=== PATIENT | female | born 1995 | race Caucasian/White ===

== ENCOUNTER 2016-08-05 12:09 | Emergency (ER) | payer OTHER ==
[2016-08-05] MEDS ORDERED: IBUPROFEN 600 MG TABLET PO ONE (12:51)
--- NOTE | 2016-08-05 12:51 | ER Document Report ---
ED Medical Screen (RME) - General Stated Complaint: EAR PAIN Time seen by provider: 12:50 Mode of Arrival: Ambulatory Information source: Patient Notes: 20-year-old female presents to ED for cough and stuffy nose bilateral ear pain since Tuesday. Denies fevers. Last menstrual period 08/01/2016. I have greeted and performed a rapid initial assessment of this patient. A comprehensive ED assessment and evaluation of the patient, analysis of test results and completion of medical decision making process will be conducted by an additional ED providers. TRAVEL OUTSIDE OF THE [place] IN LAST 30 DAYS: No - Related Data Allergies/Adverse Reactions: codeine [Codeine] Allergy (Intermediate, Verified 08/07/14 11:48) rash Past Medical History - Past Medical History Cardiac Medical History: Denies: Hx Heart Attack, Hx Hypertension Pulmonary Medical History: Denies: Hx Asthma Neurological Medical History: Reports: Hx Seizures - FEBRILE TODDLER. 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 Denies: Hx Hysterectomy, Hx Mastectomy, Hx Open Heart Surgery, Hx Pacemaker - Immunizations Immunizations up to date: Yes Hx Diphtheria, Pertussis, Tetanus Vaccination: Yes Physical Exam - Vital signs Vitals: Temp Pulse Resp BP Pulse Ox 97.9 F 95 H 16 128/61 H 99 08/05/16 12:22 08/05/16 12:22 08/05/16 12:22 08/05/16 12:22 08/05/16 12:22 Course - Vital Signs Vital signs: Temp Pulse Resp BP Pulse Ox 97.9 F 95 H 16 128/61 H 99 08/05/16 12:22 08/05/16 12:22 08/05/16 12:22 08/05/16 12:22 08/05/16 12:22
--- NOTE | 2016-08-05 14:06 | ER Document Report ---
HPI - HPI Onset: Other Onset/Duration: Persistent Quality of pain: Achy Pain Level: 3 Context: Patient presents with a six-day history of cough, congestion and bilateral ear pain. Patient reports chest pain with deep inspiration. No fever. Associated Symptoms: Chest pain - With deep inspiration and coughing, Nonproductive cough, Earache, Hurts to breath, Rhinnorhea. denies: Fever, Nausea, Vomiting Exacerbated by: Coughing, Deep breathing Relieved by: Remaining still Similar symptoms previously: No Recently seen / treated by doctor: No - ROS ROS below otherwise negative: Yes Systems Reviewed and Negative: Yes All other systems reviewed and negative - CONSTITUTIONAL Constitutional: DENIES: Fever, Chills - EENT EENT: REPORTS: Ear Pain, Congestion - CARDIOVASCULAR Cardiovascular: REPORTS: Chest pain - With deep inspiration - RESPIRATORY Respiratory: REPORTS: Coughing. DENIES: Trouble Breathing - GASTROINTESTINAL Gastrointestinal: DENIES: Abdominal Pain, Nausea, Patient vomiting, Diarrhea - REPRODUCTIVE Reproductive: DENIES: : - MUSCULOSKELETAL Musculoskeletal: DENIES: Extremity pain, Back Pain, Neck Pain - DERM Skin Color: Normal Skin Problems: None Past Medical History - General Information source: Patient - Social History Smoking Status: Current Every Day Smoker Chew tobacco use (# tins/day): No Frequency of alcohol use: None Drug Abuse: None Occupation: student Lives with: Family Family History: Reviewed & Not Pertinent, CAD, CVA, DM, Hyperlipidemia, Hypertension, Malignancy Patient has suicidal ideation: No Patient has homicidal ideation: No - Past Medical History Cardiac Medical History: Denies: Hx Heart Attack, Hx Hypertension Pulmonary Medical History: Denies: Hx Asthma Neurological Medical History: Reports: Hx Seizures - FEBRILE TODDLER. 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 Denies: Hx Peritoneal Dialysis GI Medical History: Denies: Hx Hepatitis, Hx Hiatal Hernia, Hx Ulcer Musculoskeltal Medical History: Reports Hx Fibromyalgia, Reports Hx Musculoskeletal Trauma Skin Medical History: Reports Hx Cellulitis Psychiatric Medical History: Reports: Hx Attention Deficit Hyperactivity Disorder, Hx Bipolar Disorder, Hx Depression Infectious Medical History: Denies: Hx Hepatitis Past Surgical History: Reports: Hx Adenoidectomy, Hx Oral Surgery, Hx Tonsillectomy. Denies: Hx Hysterectomy, Hx Mastectomy, Hx Open Heart Surgery, Hx Pacemaker - Immunizations Immunizations up to date: Yes Hx Diphtheria, Pertussis, Tetanus Vaccination: Yes Hx Pneumococcal Vaccination: 05/09/00 Vertical Provider Document - CONSTITUTIONAL Agree With Documented VS: Yes Exam Limitations: No Limitations General Appearance: WD/WN, No Apparent Distress - INFECTION CONTROL TRAVEL OUTSIDE OF THE [place] IN LAST 30 DAYS: No - HEENT HEENT: Atraumatic, Normal ENT Exam, Normocephalic Notes: Normal external auditory canals bilaterally, no mastoid tenderness or swelling. - NECK Neck: Normal Inspection, Supple. negative: Lymphadenopathy-Left, Lymphadenopathy-Right - RESPIRATORY Respiratory: Breath Sounds Normal, No Respiratory Distress. negative: Chest Non -Tender - Anterior chest wall tenderness with palpation, Rales, Rhonchi, Wheezing O2 Sat by Pulse Oximetry: 99 - CARDIOVASCULAR Cardiovascular: Regular Rate, Regular Rhythm, No Murmur - GI/ABDOMEN Gastrointestinal: Abdomen Soft, Abdomen Non-Tender, No Organomegaly - BACK Back: Normal Inspection. negative: CVA Tenderness-Right, CVA Tenderness-Left - MUSCULOSKELETAL/EXTREMETIES Musculoskeletal/Extremeties: MELONY DUNCAN - NEURO Level of Consciousness: Awake, Alert, Appropriate Motor/Sensory: No Motor Deficit, No Sensory Deficit - DERM Integumentary: Warm, Dry, No Rash Course - Vital Signs Vital signs: Temp Pulse Resp BP Pulse Ox 97.9 F 95 H 16 128/61 H 99 08/05/16 12:22 08/05/16 12:22 08/05/16 12:22 08/05/16 12:22 08/05/16 12:22 - Laboratory Laboratory results interpreted by me: 08/05/16 15:29 Labs- Last Values Group A Strep Rapid NEGATIVE (NEGATIVE) 08/05/16 14:00 08/05/16 18:29 - Diagnostic Test Radiology reviewed: Reports reviewed Discharge - Discharge Clinical Impression: Upper respiratory infection Qualifiers: URI type: unspecified URI Qualified Code(s): J06.9 - Acute upper respiratory infection, unspecified Otalgia Qualifiers: Laterality: bilateral Qualified Code(s): H92.03 - Otalgia, bilateral Condition: Stable Disposition: HOME, SELF-CARE Instructions: Upper Respiratory Illness ([facility]), Acetaminophen Additional Instructions: Return immediately for any new or worsening symptoms Followup with your primary care provider, call tomorrow to make a followup appointment Throat culture is pending, we'll call if you need any different treatment Prescriptions: Benzonatate [Tessalon Perle 100 mg Capsule] 100 mg PO Q8HP PRN #15 cap PRN Reason: Naproxen [Naprosyn 250 Nmg Tablet] 1 tab PO BID #14 tablet Forms: Return to School Referrals: ROBERT CARL MD [Primary Care Provider] - Follow up tomorrow
[2016-08-05 16:15] VITALS: BP 166/66
== END 2016-08-05 15:39 | disposition home or self-care (01) ==
LOC: ER 12:09
DX: J06.9 Acute upper respiratory infection, unspecified (principal); H92.03 Otalgia, bilateral; R05 Cough; R07.1 Chest pain on breathing; J34.89 Other specified disorders of nose and nasal sinuses; F17.200 Nicotine dependence, unspecified, uncomplicated
CPT/HCPCS: 71020; 87070; 87880; 99283

== ENCOUNTER 2016-08-11 07:46 | Emergency (ER) | payer OTHER ==
[2016-08-11] MEDS ORDERED: ONDANSETRON HCL INJ/PF 4 MG/2 ML SDV IV ONE (09:07)
[2016-08-11] MEDS ORDERED: KETOROLAC TROMETHAMINE INJ/PF 30 MG/1 ML SDV IV ONE (09:07)
[2016-08-11 09:11] LABS: ABSOLUTE EOSINOPHILS # (AUTO) 0.2 10^3/uL (0.0-0.6); ABSOLUTE LYMPHOCYTES (AUTO) 2.5 10^3/uL (0.5-4.7); ABSOLUTE MONOCYTES (AUTO) 0.5 10^3/uL (0.1-1.4); ABSOLUTE NEUT (AUTO) 3.6 10^3/uL (1.7-8.2); BASOPHILS % (AUTO) 0.6 % (0-2); EOSINOPHILS % (AUTO) 3.4 % (0-6); HEMATOCRIT 41.2 % (36.0-47.0); HEMOGLOBIN 14.4 g/dL (12.0-15.5); LYMPHOCYTES % (AUTO) 36.6 % (13-45); MEAN CORPUSCULAR HEMOGLOBIN 31.1 pg (27.0-33.4); MEAN CORPUSCULAR HGB CONC 34.9 g/dL (32.0-36.0); MEAN CORPUSCULAR VOLUME 89 fl (80-97); MONOCYTES % (AUTO) 7.7 % (3-13); RED BLOOD COUNT 4.62 10^6/uL (3.72-5.28); RED CELL DISTRIBUTION WIDTH 13.1 % (11.5-14.0); SEGMENTED NEUTROPHILS % (AUTO) 51.7 % (42-78); WHITE BLOOD COUNT 6.9 10^3/uL (4.0-10.5)
[2016-08-11 09:14] LABS: APPEARANCE,URINE SLIGHTLY-CLOUDY; BILIRUBIN,URINE NEGATIVE (NEGATIVE); GLUCOSE, URINE NEGATIVE (NEGATIVE); KETONES,URINE NEGATIVE (NEGATIVE); LEUKOCYTE ESTERASE,URINE NEGATIVE (NEGATIVE); NITRITE,URINE NEGATIVE (NEGATIVE); PROTEIN,URINE NEGATIVE (NEGATIVE); URINE SPECIFIC GRAVITY 1.028; UROBILINOGEN,URINE NEGATIVE mg/dL (<2.0)
--- NOTE | 2016-08-11 09:15 | ER Document Report ---
ED GI/ - General Chief Complaint: Abdominal Pain Stated Complaint: ABDOMINAL PAIN Mode of Arrival: Ambulatory Information source: Patient TRAVEL OUTSIDE OF THE [place] IN LAST 30 DAYS: No - HPI Patient complains to provider of: Flank pain Timing/Duration: Gradual Quality of pain: Dull Severity at maximum: Moderate Severity in ED: Moderate Associated symptoms: Nausea. denies: Blood in emesis, Blood in stool, Chest pain, Chills, Diarrhea, Dysuria, Fever, Hematuria, Hurts to breath, Inguinal mass, Lightheaded, Loss of appetite, Painful intercourse, Shortness of breath, Sweaty, Syncope, Vaginal discharge, Vomiting Exacerbated by: Denies Relieved by: Denies Notes: 08/11/16 09:17 Patient arrives with complaints of left flank and abdominal pain. She states that yesterday she developed left flank pain and thought she was having difficulty urinating. She woke up this morning the pain has moved into the left mid and lower abdomen. She was able to urinate this morning without any difficulty. She denies any dysuria or hematuria. She denies any history of kidney stones. She denies any prior abdominal surgeries. She reports nausea, denies any vomiting or diarrhea. No blood in her stool. She denies any chest pain or shortness of breath. No rash. No injury. No vaginal bleeding or discharge. Reviewing her records patient has been noted to be evaluated several times for abdominal pain in the past. - Related Data Allergies/Adverse Reactions: codeine [Codeine] Allergy (Intermediate, Verified 08/11/16 07:50) rash Past Medical History - Social History Smoking Status: Unknown if Ever Smoked Family History: Reviewed & Not Pertinent, CAD, CVA, DM, Hyperlipidemia, Hypertension, Malignancy Patient has suicidal ideation: No Patient has homicidal ideation: No - Past Medical History Cardiac Medical History: Denies: Hx Heart Attack, Hx Hypertension Pulmonary Medical History: Denies: Hx Asthma Neurological Medical History: Reports: Hx Seizures - FEBRILE TODDLER. 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 Denies: Hx Peritoneal Dialysis GI Medical History: Denies: Hx Hepatitis, Hx Hiatal Hernia, Hx Ulcer Musculoskeltal Medical History: Reports Hx Fibromyalgia, Reports Hx Musculoskeletal Trauma Skin Medical History: Reports Hx Cellulitis Psychiatric Medical History: Reports: Hx Attention Deficit Hyperactivity Disorder, Hx Bipolar Disorder, Hx Depression Infectious Medical History: Denies: Hx Hepatitis Past Surgical History: Reports: Hx Adenoidectomy, Hx Oral Surgery, Hx Tonsillectomy. Denies: Hx Hysterectomy, Hx Mastectomy, Hx Open Heart Surgery, Hx Pacemaker - Immunizations Immunizations up to date: Yes Hx Diphtheria, Pertussis, Tetanus Vaccination: Yes Hx Pneumococcal Vaccination: 05/09/00 Review of Systems - Review of Systems -: Yes All other systems reviewed and negative Physical Exam - Vital signs Vitals: Temp Pulse Resp BP Pulse Ox 97.6 F 93 H 14 122/45 L 99 08/11/16 07:52 08/11/16 07:52 08/11/16 07:52 08/11/16 07:52 08/11/16 07:52 - General General appearance: Appears well, Alert In distress: None Notes: Patient noted to be texting on phone without difficulty, she is in no distress at all. - HEENT Head: Normocephalic, Atraumatic Eyes: Normal Conjunctiva: Normal Extraocular movements intact: Yes Pupils: PERRL Ears: Normal External canal: Normal Mouth/Lips: Normal Mucous membranes: Normal Pharynx: Normal - Respiratory Respiratory status: No respiratory distress Breath sounds: Normal - Cardiovascular Rhythm: Regular Heart sounds: Normal auscultation Murmur: No - Abdominal Inspection: Normal Tenderness: Tender - Right mid low abdomen. No guarding or rebound. Organomegaly: No organomegaly - Back Back: Normal, Nontender, CVA tenderness - Minimal to the left - Extremities General upper extremity: Normal inspection, Nontender, Normal color, Normal ROM , Normal temperature General lower extremity: Normal inspection, Nontender, Normal color, Normal ROM , Normal temperature, Normal weight bearing. No: Nicholas's sign - Neurological Neuro grossly intact: Yes Cognition: Normal Orientation: AAOx4 Flaco Coma Scale Eye Opening: Spontaneous Flaco Coma Scale Verbal: Oriented [place] Coma Scale Motor: Obeys Commands Flaco Coma Scale Total: 15 Speech: Normal Motor strength normal: LUE, RUE, LLE, RLE Sensory: Normal - Psychological Associated symptoms: Normal affect, Normal mood - Skin Skin Temperature: Warm Skin Moisture: Dry Skin Color: Normal Course - Re-evaluation Re-evalutation: 08/11/16 11:12 Patient is nontoxic and stable vitals. The patient has a benign exam at this time. She'll be resting comfortably at all times texting without any difficulty. The patient's workup is unremarkable, normal urine, normal labs, normal CT abdomen and pelvis. Patient will be discharged home with prescription for Voltaren and Zofran. Follow up if not better in 2-3 days, sooner for increased pain, fever, persistent vomiting, or any further concerns. The patient is noted to have elevated blood pressure during today's emergency department visit. The patient was informed of this finding. The patient was instructed that this may be related to pre-hypertension and requires further evaluation with a primary care provider. The patient has no hypertensive symptoms at this time. The patient's evaluation of abdominal pain showed no obvious reason for pain during this emergency department visit today. I explained that there is the possibility that there could be a serious reason for the abdominal pain that was not discovered with today's workup. I stressed the importance of close observation as well as close follow-up for re-evaluation of the abdominal pain. The patient and/or family verbalized understanding of these instructions. He will be instructed to return immediately to the emergency department for increased abdominal pain, persistent vomiting, blood in vomit or stool, or any other change in symptoms or concerns. The patient's emergency department workup and current diagnosis were explained to the patient and or family. Follow-up instructions were provided. Medications if prescribed were discussed. Instructions for when to return to the emergency department including specific worrisome symptoms were discussed with the patient and/or family. - Vital Signs Vital signs: Temp Pulse Resp BP Pulse Ox 97.6 F 93 H 14 122/45 L 99 08/11/16 07:52 08/11/16 07:52 08/11/16 07:52 08/11/16 07:52 08/11/16 07:52 - Laboratory Result Diagrams: 08/11/16 09:00 08/11/16 09:00 - Diagnostic Test Radiology reviewed: Image reviewed, Reports reviewed - Negative CT and pelvis Discharge - Discharge Clinical Impression: Left flank pain Abdominal pain Qualifiers: Abdominal location: left upper quadrant Qualified Code(s): R10.12 - Left upper quadrant pain Condition: Stable Disposition: HOME, SELF-CARE Instructions: Abdominal Pain ([facility]), Flank Pain ([facility]) Additional Instructions: Take medications as prescribed. Follow-up with your doctor in 1-2 days for recheck. Follow-up sooner for increased pain, fever, persistent vomiting, or any further concerns. Your blood pressure was elevated during today's visit. Have this rechecked with your doctor. Prescriptions: Diclofenac Sodium [Voltaren] 75 mg PO BID #20 tablet. Ondansetron HCl [Zofran 4 mg Tablet] 1 tab PO Q6H PRN #10 tablet PRN Reason: Forms: Elevated Blood Pressure
[2016-08-11 09:30] LABS: ALANINE AMINOTRANSFERASE 28 U/L (5-35); ALBUMIN 4.1 g/dL (3.7-5.6); ALKALINE PHOSPHATASE 80 U/L (50-135); ANION GAP 12 (5-19); ASPARTATE AMINO TRANSFERASE 17 U/L (5-30); BILIRUBIN,DIRECT 0.2 mg/dL (0.0-0.4); BILIRUBIN,TOTAL 0.3 mg/dL (0.2-1.3); BLOOD UREA NITROGEN 13 mg/dL (7-20); CALCIUM 9.5 mg/dL (8.4-10.2); CARBON DIOXIDE 25 mmol/L (22-30); CHLORIDE 106 mmol/L (98-107); CREATININE RESULT 0.62 mg/dL (0.52-1.25); GLUCOSE 89 mg/dL (75-110); LIPASE 91.8 U/L (23-300); POTASSIUM 4.9 mmol/L (3.6-5.0); SODIUM 143.4 mmol/L (137-145); TOTAL PROTEIN 6.6 g/dL (6.3-8.2)
[2016-08-11 12:06] VITALS: BP 110/42
== END 2016-08-11 11:42 | disposition home or self-care (01) ==
LOC: ER 07:46
DX: R10.12 Left upper quadrant pain (principal); R10.9 Unspecified abdominal pain; R11.0 Nausea; Z88.6 Allergy status to analgesic agent
CPT/HCPCS: 99284; 36415; 83690; 84703; 85025; 80053; 81001; 74176; J1885; J2405

== ENCOUNTER 2016-08-31 08:07 | Emergency (ER) | payer OTHER ==
--- NOTE | 2016-08-31 10:11 | ER Document Report ---
HPI - HPI Patient complains to provider of: right hand and wrist pain Onset: Other - Tuesday morning Onset/Duration: Sudden Quality of pain: Achy Severity: Moderate Pain Level: 3 Context: Patient states she fell off her porch early Tuesday morning injuring her right hand and right wrist. Associated Symptoms: None Exacerbated by: Movement Relieved by: Remaining still Similar symptoms previously: No Recently seen / treated by doctor: No - ROS ROS below otherwise negative: Yes Systems Reviewed and Negative: Yes All other systems reviewed and negative - CONSTITUTIONAL Constitutional: DENIES: Fever - EENT EENT: DENIES: Congestion - NEURO Neurology: DENIES: Headache - CARDIOVASCULAR Cardiovascular: DENIES: Chest pain - RESPIRATORY Respiratory: DENIES: Trouble Breathing - GASTROINTESTINAL Gastrointestinal: DENIES: Abdominal Pain - URINARY Urinary: DENIES: Dysuria - REPRODUCTIVE Reproductive: DENIES: : - MUSCULOSKELETAL Musculoskeletal: REPORTS: Extremity pain - Right hand and right wrist - DERM Skin Color: Normal Skin Problems: None Past Medical History - General Information source: Patient - Social History Smoking Status: Current Every Day Smoker Chew tobacco use (# tins/day): No Frequency of alcohol use: None Drug Abuse: None Family History: Reviewed & Not Pertinent, CAD, CVA, DM, Hyperlipidemia, Hypertension, Malignancy Patient has suicidal ideation: No Patient has homicidal ideation: No Neurological Medical History: Reports: Hx Seizures - FEBRILE TODDLER Renal/ Medical History: Reports: Hx Ovarian Cysts. Denies: Hx Peritoneal Dialysis GI Medical History: Denies: Hx Ulcer Musculoskeltal Medical History: Reports Hx Fibromyalgia, Reports Hx Musculoskeletal Trauma Skin Medical History: Reports Hx Cellulitis Psychiatric Medical History: Reports: Hx Attention Deficit Hyperactivity Disorder, Hx Bipolar Disorder, Hx Depression Past Surgical History: Reports: Hx Adenoidectomy, Hx Oral Surgery, Hx Tonsillectomy - Immunizations Immunizations up to date: Yes Hx Diphtheria, Pertussis, Tetanus Vaccination: Yes Hx Pneumococcal Vaccination: 05/09/00 Vertical Provider Document - CONSTITUTIONAL Agree With Documented VS: Yes Exam Limitations: No Limitations General Appearance: WD/WN, No Apparent Distress - INFECTION CONTROL TRAVEL OUTSIDE OF THE [place] IN LAST 30 DAYS: No - HEENT HEENT: Atraumatic, Normocephalic - RESPIRATORY Respiratory: Breath Sounds Normal, No Respiratory Distress O2 Sat by Pulse Oximetry: 100 - CARDIOVASCULAR Cardiovascular: Regular Rate, Regular Rhythm - GI/ABDOMEN Gastrointestinal: Abdomen Soft - MUSCULOSKELETAL/EXTREMETIES Notes: No edema noted to right hand or wrist. Tender over right index finger and medial right wrist. No bruising or abrasions noted. - NEURO Level of Consciousness: Awake, Alert, Appropriate - DERM Integumentary: Warm, Dry, No Rash Course - Re-evaluation Re-evalutation: 08/31/16 10:40 X-rays negative and discussed with patient. - Vital Signs Vital signs: Temp Pulse Resp BP Pulse Ox 97.8 F 94 H 16 130/78 H 100 08/31/16 08:12 08/31/16 08:12 08/31/16 08:12 08/31/16 08:12 08/31/16 08:12 Discharge - Discharge Clinical Impression: Right wrist sprain Qualifiers: Encounter type: initial encounter Qualified Code(s): S63.501A - Unspecified sprain of right wrist, initial encounter Condition: Good Disposition: HOME, SELF-CARE Additional Instructions: Ice and elevate Wear splint as directed Ibuprofen for pain Follow-up with your doctor if not better in 1 week Turn as needed Forms: Return to Work
[2016-08-31 11:02] VITALS: BP 115/63
== END 2016-08-31 11:02 | disposition home or self-care (01) ==
LOC: ER 08:07
DX: S63.501A Unspecified sprain of right wrist, initial encounter (principal); M79.641 Pain in right hand; M25.531 Pain in right wrist; W17.89XA Other fall from one level to another, initial encounter; F17.200 Nicotine dependence, unspecified, uncomplicated
CPT/HCPCS: 99283; 73130; L3984

== ENCOUNTER 2016-09-23 08:32 | Emergency (ER) | payer SELFPAY ==
[2016-09-23 08:41] VITALS: BP 114/46
--- NOTE | 2016-09-23 08:50 | ER Document Report ---
HPI - HPI Patient complains to provider of: EAR PAIN, COUGH Onset: Last week Onset/Duration: Persistent Pain Level: 4 Context: Patient presents to the Emergency department for complaints of left ear pain and cough for the past week. Patient reports that her has woke her up several times during the night because she was not breathing correctly. She reports fever of 100.0 yesterday. Denies Vomiting and diarrhea. Denies trauma to the ear. Associated Symptoms: None Exacerbated by: Denies Relieved by: Denies Similar symptoms previously: Yes Recently seen / treated by doctor: No - REPRODUCTIVE Reproductive: DENIES: : - DERM Skin Color: Normal <NATHANIEL GEE - Last Filed: 09/23/16 18:18> Past Medical History - General Information source: Patient Last Menstrual Period: 08/01/16 - Social History Smoking Status: Current Every Day Smoker Cigarette use (# per day): Yes - 1/2 ppd Frequency of alcohol use: None Drug Abuse: None Occupation: student Lives with: Family, Spouse/Significant other Family History: Reviewed & Not Pertinent, CAD, CVA, DM, Hyperlipidemia, Hypertension, Malignancy Patient has suicidal ideation: No Patient has homicidal ideation: No - Past Medical History Cardiac Medical History: Denies: Hx Heart Attack, Hx Hypertension Pulmonary Medical History: Denies: Hx Asthma Neurological Medical History: Reports: Hx Seizures - FEBRILE TODDLER Endocrine Medical History: Denies: Hx Diabetes Mellitus Type 2 - hypogylcemia Renal/ Medical History: Reports: Hx Ovarian Cysts. Denies: Hx Peritoneal Dialysis GI Medical History: Denies: Hx Hiatal Hernia, Hx Ulcer Musculoskeltal Medical History: Reports Hx Fibromyalgia, Reports Hx Musculoskeletal Trauma Skin Medical History: Reports Hx Cellulitis Psychiatric Medical History: Reports: Hx Attention Deficit Hyperactivity Disorder, Hx Bipolar Disorder, Hx Depression Past Surgical History: Reports: Hx Adenoidectomy, Hx Oral Surgery, Hx Tonsillectomy. Denies: Hx Hysterectomy, Hx Mastectomy, Hx Open Heart Surgery - Immunizations Immunizations up to date: Yes Hx Diphtheria, Pertussis, Tetanus Vaccination: Yes Hx Pneumococcal Vaccination: 05/09/00 <NATHANIEL GEE - Last Filed: 09/23/16 18:18> Vertical Provider Document - CONSTITUTIONAL Agree With Documented VS: Yes Exam Limitations: No Limitations General Appearance: WD/WN, No Apparent Distress - INFECTION CONTROL TRAVEL OUTSIDE OF THE [place] IN LAST 30 DAYS: No - HEENT HEENT: Atraumatic, Normal ENT Exam. negative: Conjuctival Injection, Pharyngeal Exudate, Pharyngeal Erythema, Tympanic Membrane Red, Tympanic Membrane Bulging - NECK Neck: Normal Inspection, Supple. negative: Lymphadenopathy-Left, Lymphadenopathy-Right - RESPIRATORY Respiratory: Breath Sounds Normal, No Respiratory Distress - NO COUGHING NOTED DURING ENTIRE ASSESSMENT AND INTERVIEW, Chest Non-Tender O2 Sat by Pulse Oximetry: 99 - CARDIOVASCULAR Cardiovascular: Regular Rate, Regular Rhythm - GI/ABDOMEN Gastrointestinal: Abdomen Soft, Abdomen Non-Tender - BACK Back: Normal Inspection - MUSCULOSKELETAL/EXTREMETIES Musculoskeletal/Extremeties: MELONY DUNCAN - NEURO Level of Consciousness: Awake, Alert, Appropriate Motor/Sensory: No Motor Deficit <NATHANIEL GEE - Last Filed: 09/23/16 18:18> Course - Re-evaluation Re-evalutation: 09/23/16 Patient looks really good nontoxic looking. Patient speaking in clear sentences without shortness of breath. Patient was instructed on the importance of follow-up with the primary care provider for evaluation and recheck. She verbalized understanding to all instructions. - Vital Signs Vital signs: Temp Pulse Resp BP Pulse Ox 98.1 F 86 20 114/46 L 99 09/23/16 08:40 09/23/16 08:40 09/23/16 08:40 09/23/16 08:40 09/23/16 08:40 <NATHANIEL GEE - Last Filed: 09/23/16 18:18> - Vital Signs Vital signs: Temp Pulse Resp BP Pulse Ox 98.1 F 86 20 114/46 L 99 09/23/16 08:40 09/23/16 08:40 09/23/16 08:40 09/23/16 08:40 09/23/16 18:22 <DARIO GAFFNEY - Last Filed: 09/25/16 10:18> Discharge <NATHANIEL GEE - Last Filed: 09/23/16 18:18> <DARIO GAFFNEY - Last Filed: 09/25/16 10:18> - Discharge Clinical Impression: Left ear pain, cough Condition: Stable Disposition: HOME, SELF-CARE Instructions: Acetaminophen, Stop Smoking ([facility]) Additional Instructions: *You have been evaluated for ear pain, cough *Quit smoking *Take antihistamine as indicated *Take tylenol as indicated for ear pain *Follow up with a primary care provider for recheck within one week *Return to ED for worsening condition, changes, needs, trouble breathing, increased fever, concerns Forms: Smoking Cessation Education, Parent Work Note, Return to School
== END 2016-09-23 09:40 | disposition home or self-care (01) ==
LOC: ER 08:32
DX: H92.02 Otalgia, left ear (principal); R05 Cough; F17.210 Nicotine dependence, cigarettes, uncomplicated
CPT/HCPCS: 99282

== ENCOUNTER 2016-09-29 07:49 | Emergency (ER) | payer MEDICAID, OTHER ==
[2016-09-29 08:43] LABS: ABSOLUTE BASOPHILS # (AUTO) 0.1 10^3/uL (0.0-0.2); ABSOLUTE EOSINOPHILS # (AUTO) 0.3 10^3/uL (0.0-0.6); ABSOLUTE LYMPHOCYTES (AUTO) 2.8 10^3/uL (0.5-4.7); ABSOLUTE MONOCYTES (AUTO) 0.7 10^3/uL (0.1-1.4); ABSOLUTE NEUT (AUTO) 6.2 10^3/uL (1.7-8.2); BASOPHILS % (AUTO) 0.7 % (0-2); HEMATOCRIT 45.6 % (36.0-47.0); HEMOGLOBIN 15.7 g/dL (12.0-15.5); HGB HCT DIFFERENCE 1.5; LYMPHOCYTES % (AUTO) 27.9 % (13-45); MEAN CORPUSCULAR HEMOGLOBIN 30.9 pg (27.0-33.4); MEAN CORPUSCULAR HGB CONC 34.3 g/dL (32.0-36.0); MEAN CORPUSCULAR VOLUME 90 fl (80-97); MONOCYTES % (AUTO) 6.9 % (3-13); RED BLOOD COUNT 5.06 10^6/uL (3.72-5.28); RED CELL DISTRIBUTION WIDTH 13.2 % (11.5-14.0); SEGMENTED NEUTROPHILS % (AUTO) 61.5 % (42-78)
[2016-09-29 09:04] LABS: ALANINE AMINOTRANSFERASE 28 U/L (5-35); ALBUMIN 4.5 g/dL (3.7-5.6); ALKALINE PHOSPHATASE 84 U/L (50-135); ANION GAP 9 (5-19); ASPARTATE AMINO TRANSFERASE 19 U/L (5-30); BILIRUBIN,DIRECT 0.3 mg/dL (0.0-0.4); BILIRUBIN,TOTAL 0.5 mg/dL (0.2-1.3); BLOOD UREA NITROGEN 10 mg/dL (7-20); CALCIUM 9.9 mg/dL (8.4-10.2); CARBON DIOXIDE 26 mmol/L (22-30); CHLORIDE 104 mmol/L (98-107); CREATININE RESULT 0.66 mg/dL (0.52-1.25); GLUCOSE 84 mg/dL (75-110); LIPASE 101.3 U/L (23-300); POTASSIUM 4.4 mmol/L (3.6-5.0); SODIUM 138.8 mmol/L (137-145); TOTAL PROTEIN 7.5 g/dL (6.3-8.2)
[2016-09-29 09:12] LABS: APPEARANCE,URINE SLIGHTLY-CLOUDY; BILIRUBIN,URINE NEGATIVE (NEGATIVE); GLUCOSE, URINE NEGATIVE (NEGATIVE); KETONES,URINE NEGATIVE (NEGATIVE); LEUKOCYTE ESTERASE,URINE SMALL (NEGATIVE); NITRITE,URINE NEGATIVE (NEGATIVE); PROTEIN,URINE NEGATIVE (NEGATIVE); URINE SPECIFIC GRAVITY 1.015; UROBILINOGEN,URINE NEGATIVE mg/dL (<2.0)
[2016-09-29] MEDS ORDERED: KETOROLAC TROMETHAMINE INJ/PF 30 MG/1 ML SDV IV ONE (09:19)
--- NOTE | 2016-09-29 09:20 | ER Document Report ---
ED General - General Chief Complaint: Lower Abdominal Pain Stated Complaint: ABDOMINAL PAIN Time Seen by Provider: 09/29/16 08:02 Mode of Arrival: Ambulatory Information source: Patient Notes: 20-year-old female presents with complaints of left lower quadrant abdominal pain. Patient admits she has a history of ovarian cyst denies any vaginal bleeding or discharge. Patient denies any urinary complaints. Patient admits to one episode of vomiting. Pain started yesterday TRAVEL OUTSIDE OF THE [place] IN LAST 30 DAYS: No - HPI Onset: Yesterday Onset/Duration: Sudden Quality of pain: Cramping Severity: Mild Pain Level: 1 Associated symptoms: Nausea, Vomiting Exacerbated by: Denies Relieved by: Denies Similar symptoms previously: Yes Recently seen / treated by doctor: Yes - Related Data Allergies/Adverse Reactions: codeine [Codeine] Allergy (Intermediate, Verified 09/29/16 07:52) rash Past Medical History - Social History Smoking Status: Current Every Day Smoker Cigarette use (# per day): Yes Chew tobacco use (# tins/day): No Smoking Education Provided: No Frequency of alcohol use: None Drug Abuse: None Family History: Reviewed & Not Pertinent, CAD, CVA, DM, Hyperlipidemia, Hypertension, Malignancy Patient has suicidal ideation: No Patient has homicidal ideation: No - Past Medical History Cardiac Medical History: Denies: Hx Heart Attack, Hx Hypertension Pulmonary Medical History: Denies: Hx Asthma Neurological Medical History: Reports: Hx Seizures - FEBRILE TODDLER Endocrine Medical History: Denies: Hx Diabetes Mellitus Type 2 - hypogylcemia Renal/ Medical History: Reports: Hx Ovarian Cysts. Denies: Hx Peritoneal Dialysis GI Medical History: Denies: Hx Hiatal Hernia, Hx Ulcer Musculoskeltal Medical History: Reports Hx Fibromyalgia, Reports Hx Musculoskeletal Trauma Skin Medical History: Reports Hx Cellulitis Psychiatric Medical History: Reports: Hx Attention Deficit Hyperactivity Disorder, Hx Bipolar Disorder, Hx Depression Past Surgical History: Reports: Hx Adenoidectomy, Hx Oral Surgery, Hx Tonsillectomy. Denies: Hx Hysterectomy, Hx Mastectomy, Hx Open Heart Surgery - Immunizations Immunizations up to date: Yes Hx Diphtheria, Pertussis, Tetanus Vaccination: Yes Hx Pneumococcal Vaccination: 05/09/00 Review of Systems - Review of Systems Notes: PHYSICAL EXAMINATION: GENERAL: Well-appearing, well-nourished and in no acute distress. HEAD: Atraumatic, normocephalic. EYES: Pupils equal round and reactive to light, extraocular movements intact, conjunctiva are normal. ENT: Nares patent, oropharynx clear without exudates. Moist mucous membranes. NECK: Normal range of motion, supple without lymphadenopathy LUNGS: Breath sounds clear to auscultation bilaterally and equal. No wheezes rales or rhonchi. HEART: Regular rate and rhythm without murmurs ABDOMEN: Soft, mildly tender in the suprapubic region Female : deferred Musculoskeletal: Normal range of motion, no pitting or edema. No cyanosis. NEUROLOGICAL: Cranial nerves grossly intact. Normal speech, normal gait. Normal sensory, motor exams PSYCH: Normal mood, normal affect. SKIN: Warm, Dry, normal turgor, no rashes or lesions noted. Physical Exam - Vital signs Vitals: Temp Pulse Resp BP Pulse Ox 98.2 F 88 18 124/51 L 99 09/29/16 07:53 09/29/16 07:53 09/29/16 07:53 09/29/16 07:53 09/29/16 07:53 Course - Re-evaluation Re-evalutation: 09/29/16 09:54 Labwork notes no significant abnormality there is no sign of infection. Urinalysis was normal as well. Ultrasound is pending at this time 09/29/16 11:11 us is consistant wit hwith left ovarian cyst, otherwise no life threatening issues noted After performing a Medical Screening Examination, I estimate there is LOW risk for ACUTE APPENDICITIS, BOWEL OBSTRUCTION, ACUTE CHOLECYSTITIS, PERFORATED DIVERTICULITIS, INCARCERATED HERNIA, PANCREATITIS, PELVIC INFLAMMATORY DISEASE, PERFORATED ULCER, ECTOPIC , or TUBO-OVARIAN ABSCESS, thus I consider the discharge disposition reasonable. Also, there is no evidence or peritonitis , sepsis, or toxicity. I have reevaluated this patient multiple times and no significant life threatening changes are noted. The patient and I have discussed the diagnosis and risks, and we agree with discharging home with close follow-up with the understanding that symptoms and presentations can change. We also discussed returning to the Emergency Department immediately if new or worsening symptoms occur. We have discussed the symptoms which are most concerning (e.g., bloody stool, fever, changing or worsening pain, vomiting) that necessitate immediate return. - Vital Signs Vital signs: Temp Pulse Resp BP Pulse Ox 98.2 F 88 18 124/51 L 99 09/29/16 07:53 09/29/16 07:53 09/29/16 07:53 09/29/16 07:53 09/29/16 07:53 - Laboratory Result Diagrams: 09/29/16 08:25 09/29/16 08:25 Laboratory results interpreted by me: 09/29/16 09/29/16 08:25 08:50 Hgb 15.7 H Ur Leukocyte Esterase SMALL H - Diagnostic Test Radiology reviewed: Image reviewed, Reports reviewed - left [id number] cm Discharge - Discharge Clinical Impression: Left ovarian cyst, Pelvic pain Condition: Stable Disposition: HOME, SELF-CARE Instructions: Pelvic Pain ([facility]) Prescriptions: Naproxen 500 mg PO Q8 #30 tablet Forms: Return to School Referrals: ROBERT CARL MD [Primary Care Provider] - Follow up as needed [facility] [Provider Group] - Follow up in 3-5 days
--- NOTE | 2016-09-29 10:46 | RADIOLOGY REPORT (SQ) ---
EXAM DESCRIPTION: U/S NON OB PEL W/DOPPLER COMPLETED DATE/TIME: 09/29/2016 10:27 am REASON FOR STUDY: LLQ pain COMPARISON: 01/26/2016 TECHNIQUE: Dynamic and static grayscale images acquired of the pelvis via transabdominal approach an d recorded on PACS. Additional selected color Doppler and spectral images recorded. LIMITATIONS: None. FINDINGS: UTERUS: Contour normal. No mass. ENDOMETRIAL STRIPE: No focal or generalized thickening. No masses. No intrauterine gestational sac. CERVIX: No nabothian cysts. RIGHT OVARY: No abnormal masses. RIGHT OVARY DOPPLER: Normal arterial vascular flow without evidence for torsion. LEFT OVARY: No abnormal masses. There is a 36 x 32 x 25 mm cyst. LEFT OVARY DOPPLER: Normal arterial vascular flow without evidence for torsion. FREE FLUID: None noted. OTHER: No other significant finding. MEASUREMENTS: UTERUS: 79 x 56 x 40 mm ENDOMETRIAL STRIPE: 9 mm RIGHT OVARY: 34 x 22 x 29 mm LEFT OVARY: 39 x 32 x 34 mm IMPRESSION: Left ovarian cyst as described. TECHNICAL DOCUMENTATION: JOB ID: [id number] TOTE- All Rights Reserved
[2016-09-29 11:41] VITALS: BP 121/48
== END 2016-09-29 11:30 | disposition home or self-care (01) ==
LOC: ER 07:49
DX: N83.202 Unspecified ovarian cyst, left side (principal); R10.2 Pelvic and perineal pain; R10.30 Lower abdominal pain, unspecified; F17.210 Nicotine dependence, cigarettes, uncomplicated
CPT/HCPCS: 99284; 96374; 36415; 83690; 85025; 81025; 80053; 81001; 76856; 93976; J1885

== ENCOUNTER 2016-10-05 07:58 | Emergency (ER) | payer SELFPAY ==
[2016-10-05] MEDS ORDERED: NORMAL SALINE 1000 ML 1,000 ML IV ONE (08:20)
[2016-10-05] MEDS ORDERED: KETOROLAC TROMETHAMINE INJ/PF 30 MG/1 ML SDV IV ONE (08:20)
[2016-10-05] MEDS ORDERED: ONDANSETRON HCL INJ/PF 4 MG/2 ML SDV IV ONE (08:20)
--- NOTE | 2016-10-05 08:21 | ER Document Report ---
ED GI/ - General Chief Complaint: Pelvic Pain Stated Complaint: ABDOMINAL PAIN Time Seen by Provider: 10/05/16 08:10 Mode of Arrival: Ambulatory Information source: Patient Notes: Patient complains of left lower pelvic pain for the past 3 weeks and got worse yesterday. Patient states she has a history of a known ovarian cyst to this area. Patient reports fever yesterday. Patient complains of nausea and vomiting 6 episodes today with diarrhea 1 episode. Pt bdenies any urinary symptoms. TRAVEL OUTSIDE OF THE [place] IN LAST 30 DAYS: No - HPI Patient complains to provider of: Diarrhea, Pelvic pain, Vomiting. No: Vaginal discharge Onset: Other - 3 weeks, worse this morning Timing/Duration: Worse Quality of pain: Sharp Pain Level: 4 Location: Pelvis - left Lower pelvic Vaginal bleeding (Compared to normal period): None Associated symptoms: Diarrhea, Fever, Nausea, Vomiting. denies: Dysuria, Loss of appetite, Urinary hesitancy, Urinary frequency, Urinary retention, Urinary urgency Exacerbated by: Denies Relieved by: Denies Similar symptoms previously: Yes - ovarian cyst Recently seen / treated by doctor: No - Related Data Allergies/Adverse Reactions: codeine [Codeine] Allergy (Intermediate, Verified 09/29/16 07:52) rash Past Medical History - General Information source: Patient - Social History Smoking Status: Never Smoker Occupation: student Lives with: Family Family History: Reviewed & Not Pertinent, CAD, CVA, DM, Hyperlipidemia, Hypertension, Malignancy Patient has suicidal ideation: No Patient has homicidal ideation: No - Past Medical History Cardiac Medical History: Denies: Hx Heart Attack, Hx Hypertension Pulmonary Medical History: Denies: Hx Asthma Neurological Medical History: Reports: Hx Seizures - FEBRILE TODDLER Endocrine Medical History: Denies: Hx Diabetes Mellitus Type 2 - hypogylcemia Renal/ Medical History: Reports: Hx Ovarian Cysts. Denies: Hx Peritoneal Dialysis GI Medical History: Denies: Hx Hiatal Hernia, Hx Ulcer Musculoskeltal Medical History: Reports Hx Fibromyalgia, Reports Hx Musculoskeletal Trauma Skin Medical History: Reports Hx Cellulitis Psychiatric Medical History: Reports: Hx Attention Deficit Hyperactivity Disorder, Hx Bipolar Disorder, Hx Depression Past Surgical History: Reports: Hx Adenoidectomy, Hx Oral Surgery, Hx Tonsillectomy. Denies: Hx Hysterectomy, Hx Mastectomy, Hx Open Heart Surgery - Immunizations Immunizations up to date: Yes Hx Diphtheria, Pertussis, Tetanus Vaccination: Yes Hx Pneumococcal Vaccination: 05/09/00 Review of Systems - Review of Systems Constitutional: Fever - yesterday EENT: No symptoms reported Cardiovascular: No symptoms reported. denies: Chest pain Respiratory: No symptoms reported. denies: Cough, Short of breath Gastrointestinal: Abdominal pain, Diarrhea, Nausea, Vomiting Genitourinary: No symptoms reported. denies: Dysuria, Flank pain Female Genitourinary: No symptoms reported. denies: , Vaginal discharge , Vaginal bleeding Musculoskeletal: No symptoms reported. denies: Back pain Skin: No symptoms reported Hematologic/Lymphatic: No symptoms reported Neurological/Psychological: No symptoms reported Physical Exam - Vital signs Vitals: Temp Pulse Resp BP Pulse Ox 97.7 F 80 20 116/53 L 100 10/05/16 08:04 10/05/16 08:04 10/05/16 08:04 10/05/16 08:04 10/05/16 08:04 - General General appearance: Appears well, Alert In distress: None - HEENT Head: Normocephalic Eyes: Normal Conjunctiva: Normal Nasal: Normal Mouth/Lips: Normal Mucous membranes: Normal - Respiratory Respiratory status: No respiratory distress Chest status: Nontender Breath sounds: Normal. No: Rales, Rhonchi, Stridor, Wheezing Chest palpation: Normal - Cardiovascular Rhythm: Regular Heart sounds: S1 appreciated, S2 appreciated Murmur: No - Abdominal Inspection: Normal Distension: No distension Bowel sounds: Normal Tenderness: Tender - left lower pelvic Organomegaly: No organomegaly - Back Back: CVA tenderness - left - Extremities General upper extremity: Normal inspection, Normal ROM General lower extremity: Normal inspection, Normal ROM - Neurological Neuro grossly intact: Yes Cognition: Normal [place] Coma Scale Eye Opening: Spontaneous [place] Coma Scale Verbal: Oriented [place] Coma Scale Motor: Obeys Commands [place] Coma Scale Total: 15 - Psychological Associated symptoms: Normal affect, Normal mood - Skin Skin Temperature: Warm Skin Moisture: Dry Skin Color: Normal Course - Re-evaluation Re-evalutation: 10/05/16 11:42 States abdominal pain is almost completely resolved and just comes and goes periodically. Patient without any vomiting or diarrhea during ER stay. Discussed worsening signs or symptoms that patient should return immediately for. Patient verbalized understanding and agrees with plan of care. Patient denies any concerns about possible sexually transmitted infection and declines pelvic examination for that at this time. Patient encouraged to follow-up with film vault supervisor as an outpatient and to call them today to make a follow-up appointment. Consulted with Dr. Nguyen regarding patient presentation and diagnostic test results, agrees with discharge plan of care. - Vital Signs Vital signs: Temp Pulse Resp BP Pulse Ox 97.8 F 72 16 105/40 L 100 10/05/16 11:54 10/05/16 11:54 10/05/16 11:54 10/05/16 11:54 10/05/16 11:54 - Laboratory Result Diagrams: 10/05/16 09:30 10/05/16 09:30 Laboratory results interpreted by me: 10/05/16 09:30 Chloride 108 H Total Protein 6.1 L Albumin 3.6 L Labs- Entire Visit 10/05/16 10/05/16 10/05/16 09:30 09:30 09:30 WBC 9.0 RBC 4.37 Hgb 13.7 Hct 39.6 MCV 91 MCH 31.4 MCHC 34.6 RDW 13.4 Plt Count 150 Seg Neutrophils % 55.9 Lymphocytes % 32.4 Monocytes % 7.7 Eosinophils % 3.4 Basophils % 0.6 Absolute Neutrophils 5.0 Absolute Lymphocytes 2.9 Absolute Monocytes 0.7 Absolute Eosinophils 0.3 Absolute Basophils 0.1 Sodium 139.1 Potassium 4.3 Chloride 108 H Carbon Dioxide 24 Anion Gap 7 BUN 8 Creatinine 0.62 Est GFR ( Amer) > 60 Est GFR (Non-Af Amer) > 60 Glucose 80 Calcium 8.9 Total Bilirubin 0.4 Direct Bilirubin 0.2 Indirect Bilirubin Not Reportable Neonat Total Bilirubin Not Reportable AST 18 ALT 31 Alkaline Phosphatase 71 Total Protein 6.1 L Albumin 3.6 L Lipase 89.0 Serum HCG, Qual NEGATIVE Urine Color Urine Appearance Urine pH Ur Specific Mcintosh Urine Protein Urine Glucose (UA) Urine Ketones Urine Blood Urine Nitrite Urine Bilirubin Urine Urobilinogen Ur Leukocyte Esterase Urine RBC (Auto) Urine Mucus (Auto) Urine Ascorbic Acid 10/05/16 10:45 WBC RBC Hgb Hct MCV MCH MCHC RDW Plt Count Seg Neutrophils % Lymphocytes % Monocytes % Eosinophils % Basophils % Absolute Neutrophils Absolute Lymphocytes Absolute Monocytes Absolute Eosinophils Absolute Basophils Sodium Potassium Chloride Carbon Dioxide Anion Gap BUN Creatinine Est GFR ( Amer) Est GFR (Non-Af Amer) Glucose Calcium Total Bilirubin Direct Bilirubin Indirect Bilirubin Neonat Total Bilirubin AST ALT Alkaline Phosphatase Total Protein Albumin Lipase Serum HCG, Qual Urine Color STRAW Urine Appearance CLEAR Urine pH 6.0 Ur Specific Mcintosh 1.003 Urine Protein NEGATIVE Urine Glucose (UA) NEGATIVE Urine Ketones NEGATIVE Urine Blood NEGATIVE Urine Nitrite NEGATIVE Urine Bilirubin NEGATIVE Urine Urobilinogen NEGATIVE Ur Leukocyte Esterase NEGATIVE Urine RBC (Auto) 0 Urine Mucus (Auto) RARE Urine Ascorbic Acid NEGATIVE 10/05/16 15:22 - Diagnostic Test Radiology reviewed: Reports reviewed Discharge - Discharge Clinical Impression: Left ovarian cyst, Pelvic pain, Vomiting and diarrhea Condition: Stable Disposition: HOME, SELF-CARE Instructions: Pelvic Pain ([facility]), Toradol Injection ([facility]), Ovarian Cyst ([facility]), Nausea or Vomiting, Nonspecific ([facility]), Diarrhea, Nonspecific ([facility]) Additional Instructions: Return immediately for any new or worsening symptoms Followup with your primary care provider, call tomorrow to make a followup appointment Follow-up with a film vault supervisor for further evaluation, call today to make a follow-up appointment Increase oral fluids to stay well-hydrated Prescriptions: Ondansetron HCl [Zofran 4 mg Tablet] 1 - 2 tab PO Q6 PRN #15 tablet PRN Reason: Forms: Return to School Referrals: ROBERT CARL MD [Primary Care Provider] - Follow up as needed KIMBERLY EDWARDS MD [ACTIVE STAFF] - Follow up in 3-5 days
[2016-10-05 09:51] LABS: ABSOLUTE BASOPHILS # (AUTO) 0.1 10^3/uL (0.0-0.2); ABSOLUTE EOSINOPHILS # (AUTO) 0.3 10^3/uL (0.0-0.6); ABSOLUTE LYMPHOCYTES (AUTO) 2.9 10^3/uL (0.5-4.7); ABSOLUTE MONOCYTES (AUTO) 0.7 10^3/uL (0.1-1.4); BASOPHILS % (AUTO) 0.6 % (0-2); EOSINOPHILS % (AUTO) 3.4 % (0-6); HEMATOCRIT 39.6 % (36.0-47.0); HEMOGLOBIN 13.7 g/dL (12.0-15.5); HGB HCT DIFFERENCE 1.5; LYMPHOCYTES % (AUTO) 32.4 % (13-45); MEAN CORPUSCULAR HEMOGLOBIN 31.4 pg (27.0-33.4); MEAN CORPUSCULAR HGB CONC 34.6 g/dL (32.0-36.0); MEAN CORPUSCULAR VOLUME 91 fl (80-97); MONOCYTES % (AUTO) 7.7 % (3-13); RED BLOOD COUNT 4.37 10^6/uL (3.72-5.28); RED CELL DISTRIBUTION WIDTH 13.4 % (11.5-14.0); SEGMENTED NEUTROPHILS % (AUTO) 55.9 % (42-78)
--- NOTE | 2016-10-05 10:10 | RADIOLOGY REPORT (SQ) ---
EXAM DESCRIPTION: U/S NON OB PEL TV W/DOPPLER COMPLETED DATE/TIME: 10/05/2016 9:33 am REASON FOR STUDY: LLQ pain, hx ov cyst COMPARISON: None. TECHNIQUE: Dynamic and static grayscale images acquired of the pelvis via transvaginal approach and recorded on PACS. Additional selected color Doppler and spectral images recorded. LIMITATIONS: None. FINDINGS: UTERUS: Contour normal. No mass. ENDOMETRIAL STRIPE: No focal or generalized thickening. No masses. CERVIX: No nabothian cysts. RIGHT OVARY: No abnormal masses. RIGHT OVARY DOPPLER: Normal arterial vascular flow without evidence for torsion. LEFT OVARY: No abnormal masses. LEFT OVARY DOPPLER: There is a 36 x 31 x 34 mm cyst. FREE FLUID: None noted. OTHER: No other significant finding. MEASUREMENTS: UTERUS: 88 x 50 x 39 mm ENDOMETRIAL STRIPE: 14 mm RIGHT OVARY: 29 x 21 x 24 mm LEFT OVARY: 38 x 34 x 40 mm IMPRESSION: There is a left ovarian cyst as described. TECHNICAL DOCUMENTATION: JOB ID: [id number] CURRENT- All Rights Reserved
[2016-10-05 10:17] LABS: ALANINE AMINOTRANSFERASE 31 U/L (5-35); ALBUMIN 3.6 g/dL (3.7-5.6); ALKALINE PHOSPHATASE 71 U/L (50-135); ANION GAP 7 (5-19); ASPARTATE AMINO TRANSFERASE 18 U/L (5-30); BILIRUBIN,DIRECT 0.2 mg/dL (0.0-0.4); BILIRUBIN,TOTAL 0.4 mg/dL (0.2-1.3); BLOOD UREA NITROGEN 8 mg/dL (7-20); CALCIUM 8.9 mg/dL (8.4-10.2); CARBON DIOXIDE 24 mmol/L (22-30); CHLORIDE 108 mmol/L (98-107); CREATININE RESULT 0.62 mg/dL (0.52-1.25); GLUCOSE 80 mg/dL (75-110); POTASSIUM 4.3 mmol/L (3.6-5.0); SODIUM 139.1 mmol/L (137-145); TOTAL PROTEIN 6.1 g/dL (6.3-8.2)
[2016-10-05 11:01] LABS: APPEARANCE,URINE CLEAR; BILIRUBIN,URINE NEGATIVE (NEGATIVE); GLUCOSE, URINE NEGATIVE (NEGATIVE); KETONES,URINE NEGATIVE (NEGATIVE); LEUKOCYTE ESTERASE,URINE NEGATIVE (NEGATIVE); NITRITE,URINE NEGATIVE (NEGATIVE); PROTEIN,URINE NEGATIVE (NEGATIVE); URINE SPECIFIC GRAVITY 1.003; UROBILINOGEN,URINE NEGATIVE mg/dL (<2.0)
[2016-10-05 11:55] VITALS: BP 105/40
== END 2016-10-05 11:55 | disposition home or self-care (01) ==
LOC: ER 07:58
DX: N83.202 Unspecified ovarian cyst, left side (principal); R10.2 Pelvic and perineal pain; R50.9 Fever, unspecified; R11.2 Nausea with vomiting, unspecified; R19.7 Diarrhea, unspecified; Z88.6 Allergy status to analgesic agent
CPT/HCPCS: 99284; 96374; 96375; 36415; 83690; 84703; 85025; 80053; 81001; 76830; 93976; J1885; J2405; J7030

== ENCOUNTER 2016-11-01 08:19 | Emergency (ER) | payer SELFPAY ==
[2016-11-01] MEDS ORDERED: ONDANSETRON 4 MG TAB.RAPDIS SL ONE (09:19)
[2016-11-01] MEDS ORDERED: IBUPROFEN 600 MG TABLET PO ONE (09:19)
--- NOTE | 2016-11-01 09:21 | ER Document Report ---
ED Medical Screen (RME) - General Chief Complaint: Pelvic Pain Stated Complaint: PELVIC PAIN Time Seen by Provider: 11/01/16 09:14 Mode of Arrival: Ambulatory Information source: Patient TRAVEL OUTSIDE OF THE [place] IN LAST 30 DAYS: No - HPI Patient complains to provider of: Lower abdominal pain Notes: 11/01/16 09:20 Patient is a 20-year-old female who presents to the emergency room complaining of 10 day history of lower abdominal pain with decreased appetite, vomiting and fevers, she denies dysuria or hematuria, no blood in her vomit or stools, reports a temperature of 100.9 a few days ago, has been seen in this emergency room for ovarian cyst in the past, has not followed up with [facility], no history of any abdominal surgeries - Related Data Allergies/Adverse Reactions: codeine [Codeine] Allergy (Intermediate, Verified 11/01/16 08:24) rash Past Medical History - Past Medical History Cardiac Medical History: Denies: Hx Heart Attack, Hx Hypertension Pulmonary Medical History: Denies: Hx Asthma Neurological Medical History: Reports: Hx Seizures - FEBRILE TODDLER Endocrine Medical History: Denies: Hx Diabetes Mellitus Type 2 - hypogylcemia Renal/ Medical History: Reports: Hx Ovarian Cysts. Denies: Hx Peritoneal Dialysis GI Medical History: Denies: Hx Hiatal Hernia, Hx Ulcer Musculoskeltal Medical History: Reports Hx Fibromyalgia, Reports Hx Musculoskeletal Trauma Skin Medical History: Reports Hx Cellulitis Psychiatric Medical History: Reports: Hx Attention Deficit Hyperactivity Disorder, Hx Bipolar Disorder, Hx Depression Past Surgical History: Reports: Hx Adenoidectomy, Hx Oral Surgery, Hx Tonsillectomy. Denies: Hx Hysterectomy, Hx Mastectomy, Hx Open Heart Surgery - Immunizations Immunizations up to date: Yes Hx Diphtheria, Pertussis, Tetanus Vaccination: Yes Physical Exam - Vital signs Vitals: Temp Pulse Resp BP Pulse Ox 97.8 F 82 16 107/43 L 100 11/01/16 08:25 11/01/16 08:25 11/01/16 08:25 11/01/16 08:25 11/01/16 08:25 Course - Vital Signs Vital signs: Temp Pulse Resp BP Pulse Ox 97.8 F 82 16 107/43 L 100 11/01/16 08:25 11/01/16 08:25 11/01/16 08:25 11/01/16 08:25 11/01/16 08:25
[2016-11-01 09:54] LABS: ABSOLUTE EOSINOPHILS # (AUTO) 0.4 10^3/uL (0.0-0.6); ABSOLUTE LYMPHOCYTES (AUTO) 3.4 10^3/uL (0.5-4.7); ABSOLUTE MONOCYTES (AUTO) 0.7 10^3/uL (0.1-1.4); ABSOLUTE NEUT (AUTO) 4.2 10^3/uL (1.7-8.2); BASOPHILS % (AUTO) 0.4 % (0-2); EOSINOPHILS % (AUTO) 4.3 % (0-6); HEMATOCRIT 45.1 % (36.0-47.0); HEMOGLOBIN 15.3 g/dL (12.0-15.5); HGB HCT DIFFERENCE 0.8; LYMPHOCYTES % (AUTO) 39.4 % (13-45); MEAN CORPUSCULAR HEMOGLOBIN 30.8 pg (27.0-33.4); MEAN CORPUSCULAR HGB CONC 33.9 g/dL (32.0-36.0); MEAN CORPUSCULAR VOLUME 91 fl (80-97); MONOCYTES % (AUTO) 7.5 % (3-13); RED BLOOD COUNT 4.97 10^6/uL (3.72-5.28); RED CELL DISTRIBUTION WIDTH 13.3 % (11.5-14.0); SEGMENTED NEUTROPHILS % (AUTO) 48.4 % (42-78); WHITE BLOOD COUNT 8.8 10^3/uL (4.0-10.5)
[2016-11-01 10:11] LABS: APPEARANCE,URINE SLIGHTLY-CLOUDY; BILIRUBIN,URINE NEGATIVE (NEGATIVE); GLUCOSE, URINE NEGATIVE (NEGATIVE); KETONES,URINE NEGATIVE (NEGATIVE); LEUKOCYTE ESTERASE,URINE NEGATIVE (NEGATIVE); NITRITE,URINE NEGATIVE (NEGATIVE); PROTEIN,URINE NEGATIVE (NEGATIVE); URINE SPECIFIC GRAVITY 1.032; UROBILINOGEN,URINE NEGATIVE mg/dL (<2.0)
[2016-11-01 10:22] LABS: ALANINE AMINOTRANSFERASE 23 U/L (5-35); ALBUMIN 4.4 g/dL (3.7-5.6); ALKALINE PHOSPHATASE 87 U/L (50-135); ANION GAP 12 (5-19); ASPARTATE AMINO TRANSFERASE 18 U/L (5-30); BILIRUBIN,DIRECT 0.3 mg/dL (0.0-0.4); BILIRUBIN,TOTAL 0.5 mg/dL (0.2-1.3); BLOOD UREA NITROGEN 10 mg/dL (7-20); CALCIUM 9.9 mg/dL (8.4-10.2); CARBON DIOXIDE 25 mmol/L (22-30); CHLORIDE 106 mmol/L (98-107); CREATININE RESULT 0.72 mg/dL (0.52-1.25); GLUCOSE 88 mg/dL (75-110); LIPASE 105.4 U/L (23-300); POTASSIUM 4.4 mmol/L (3.6-5.0); SODIUM 143.4 mmol/L (137-145); TOTAL PROTEIN 7.3 g/dL (6.3-8.2)
[2016-11-01 10:27] LABS: BACTERIA,URINE TRACE /HPF; RBC,URINE NONE SEEN /HPF; WBC,URINE 0-1 /HPF
--- NOTE | 2016-11-01 12:51 | ER Document Report ---
ED GI/ - General Chief Complaint: Pelvic Pain Stated Complaint: PELVIC PAIN Time Seen by Provider: 11/01/16 09:14 Mode of Arrival: Ambulatory Information source: Patient Notes: Patient is a 20-year-old female who presents to the ER today for fever, chills, lower abdominal pain, pelvic pain 2 weeks with vomiting. Patient has a history of ovarian cyst but states that her lower abdominal/pelvic pain hurts on both sides equally. She denies any abnormal vaginal discharge, vaginal bleeding, dysuria, hematuria, diarrhea. She denies . TRAVEL OUTSIDE OF THE [place] IN LAST 30 DAYS: No - Related Data Allergies/Adverse Reactions: codeine [Codeine] Allergy (Intermediate, Verified 11/01/16 08:24) rash Past Medical History - General Information source: Patient Last Menstrual Period: october [id number] - Social History Smoking Status: Unknown if Ever Smoked Family History: Reviewed & Not Pertinent, CAD, CVA, DM, Hyperlipidemia, Hypertension, Malignancy Patient has suicidal ideation: No Patient has homicidal ideation: No - Past Medical History Cardiac Medical History: Denies: Hx Heart Attack, Hx Hypertension Pulmonary Medical History: Denies: Hx Asthma Neurological Medical History: Reports: Hx Seizures - FEBRILE TODDLER Endocrine Medical History: Denies: Hx Diabetes Mellitus Type 2 - hypogylcemia Renal/ Medical History: Reports: Hx Ovarian Cysts. Denies: Hx Peritoneal Dialysis GI Medical History: Denies: Hx Hiatal Hernia, Hx Ulcer Musculoskeltal Medical History: Reports Hx Fibromyalgia, Reports Hx Musculoskeletal Trauma Skin Medical History: Reports Hx Cellulitis Psychiatric Medical History: Reports: Hx Attention Deficit Hyperactivity Disorder, Hx Bipolar Disorder, Hx Depression Past Surgical History: Reports: Hx Adenoidectomy, Hx Oral Surgery - T&A, wisdom teeth, Hx Tonsillectomy. Denies: Hx Hysterectomy, Hx Mastectomy, Hx Open Heart Surgery - Immunizations Immunizations up to date: Yes Hx Diphtheria, Pertussis, Tetanus Vaccination: Yes Hx Pneumococcal Vaccination: 05/09/00 Review of Systems - Review of Systems Constitutional: See HPI EENT: No symptoms reported Cardiovascular: No symptoms reported Respiratory: No symptoms reported Gastrointestinal: See HPI Genitourinary: No symptoms reported Female Genitourinary: See HPI Musculoskeletal: No symptoms reported Skin: No symptoms reported Hematologic/Lymphatic: No symptoms reported Neurological/Psychological: No symptoms reported Physical Exam - Vital signs Vitals: Temp Pulse Resp BP Pulse Ox 97.8 F 82 16 107/43 L 100 11/01/16 08:25 11/01/16 08:25 11/01/16 08:25 11/01/16 08:25 11/01/16 08:25 - Notes Notes: PHYSICAL EXAMINATION: GENERAL: Right lower quadrant, left lower quadrant, suprapubic in no acute distress. HEAD: Atraumatic, normocephalic. EYES: Pupils equal round and reactive to light, extraocular movements intact, sclera anicteric, conjunctiva are normal. NECK: Normal range of motion, supple without lymphadenopathy LUNGS: CTAB and equal. No wheezes rales or rhonchi. HEART: Regular rate and rhythm without murmurs ABDOMEN: Soft, right lower quadrant, left lower quadrant, suprapubic tenderness. No guarding, no rebound BACK: no vertebral tenderness, normal ROM GI/: no CVA tenderness Pelvic: White discharge in vaginal canal, erythema surrounding the cervical os , EXTREMITIES: Normal range of motion, no pitting edema. No cyanosis. NEUROLOGICAL: Cranial nerves grossly intact. Normal sensory/motor exams. PSYCH: Normal mood, normal affect. SKIN: Warm, Dry, normal turgor, no rashes or lesions noted Course - Vital Signs Vital signs: Temp Pulse Resp BP Pulse Ox 97.7 F 78 18 111/48 L 100 11/01/16 14:52 11/01/16 14:52 11/01/16 14:52 11/01/16 14:52 11/01/16 14:52 - Laboratory Result Diagrams: 11/01/16 09:25 11/01/16 09:25 Procedures - Pelvic Exam Pelvic exam Time completed: 12:50 Cultures obtained: Yes Wet prep obtained: Yes Bimanual exam performed: Yes - More tenderness than normal, cervical motion tenderness, bilateral adnexal Notes: 11/01/16 12:50 Thick white discharge in vaginal canal, erythema surrounding cervical os Discharge - Discharge Clinical Impression: PID (acute pelvic inflammatory disease) Condition: Stable Disposition: HOME, SELF-CARE Instructions: Pelvic Inflammatory Disease ([facility]), Doxycycline ([facility]) Additional Instructions: Return immediately for any new or worsening symptoms. Follow up with primary care provider, call tomorrow to make followup appointment. Prescriptions: Doxycycline Hyclate 100 mg PO BID #28 capsule Metronidazole [Flagyl 500 mg Tablet] 500 mg PO BID #28 tablet Referrals: ROBERT CARL MD [Primary Care Provider] - Follow up as needed
[2016-11-01] MEDS ORDERED: CEFTRIAXONE INJ 250 MG VIAL IM ONE (14:23)
[2016-11-01] MEDS ORDERED: AZITHROMYCIN 250 MG TABLET PO ONE (14:23)
[2016-11-01] MEDS ORDERED: LIDOCAINE 1% INJ-PF (10 MG/ML) 30 ML SDV INJ ONE (14:23)
[2016-11-01 14:51] LABS: CHLAM PCR NOT DETECTED (NOT DETECT)
[2016-11-01 14:59] VITALS: BP 111/48
== END 2016-11-01 14:52 | disposition home or self-care (01) ==
LOC: ER 08:19
DX: N73.0 Acute parametritis and pelvic cellulitis (principal); R50.9 Fever, unspecified; R11.10 Vomiting, unspecified; Z87.42 Personal history of other diseases of the female genital tract; Z88.5 Allergy status to narcotic agent
CPT/HCPCS: 99284; 96372; 36415; 87086; 87210; 83690; 84703; 85025; 80053; 81001; 87491; 87591; S0119; J3490; J0696

== ENCOUNTER 2016-12-06 20:38 | Emergency (ER) | payer OTHER, MEDICAID ==
[2016-12-06 21:15] VITALS: BP 132/51
[2016-12-06] MEDS ORDERED: IBUPROFEN 800 MG TABLET PO ONE (21:25)
--- NOTE | 2016-12-06 21:25 | ER Document Report ---
HPI - HPI Pain Level: 3 Context: Patient is a 20-year-old female presents emergency department complaining of left great toe pain. Patient states that she has been moving into a trailer over the past couple days and she is Dr. bee 3 times. She admits to pain of the left great toe with pain with ambulation. She denies any drainage, redness or bleeding. States that she is concerned that her toenail is pushed in. Otherwise she denies any other issues with her foot. She has not been taking anything at home for pain - REPRODUCTIVE Reproductive: DENIES: : - DERM Skin Color: Normal, Mack Past Medical History - Social History Smoking Status: Current Every Day Smoker Family History: Reviewed & Not Pertinent, CAD, CVA, DM, Hyperlipidemia, Hypertension, Malignancy Patient has suicidal ideation: No Patient has homicidal ideation: No - Past Medical History Cardiac Medical History: Denies: Hx Heart Attack, Hx Hypertension Pulmonary Medical History: Denies: Hx Asthma Neurological Medical History: Reports: Hx Seizures - FEBRILE TODDLER Endocrine Medical History: Denies: Hx Diabetes Mellitus Type 2 - hypogylcemia Renal/ Medical History: Reports: Hx Ovarian Cysts. Denies: Hx Peritoneal Dialysis GI Medical History: Denies: Hx Hiatal Hernia, Hx Ulcer Musculoskeltal Medical History: Reports Hx Fibromyalgia, Reports Hx Musculoskeletal Trauma Skin Medical History: Reports Hx Cellulitis Psychiatric Medical History: Reports: Hx Attention Deficit Hyperactivity Disorder, Hx Bipolar Disorder, Hx Depression Past Surgical History: Reports: Hx Adenoidectomy, Hx Oral Surgery - T&A, wisdom teeth, Hx Tonsillectomy. Denies: Hx Hysterectomy, Hx Mastectomy, Hx Open Heart Surgery - Immunizations Immunizations up to date: Yes Hx Diphtheria, Pertussis, Tetanus Vaccination: Yes Hx Pneumococcal Vaccination: 05/09/00 Vertical Provider Document - CONSTITUTIONAL Agree With Documented VS: Yes Exam Limitations: No Limitations General Appearance: WD/WN, No Apparent Distress - INFECTION CONTROL TRAVEL OUTSIDE OF THE [place] IN LAST 30 DAYS: No - RESPIRATORY O2 Sat by Pulse Oximetry: 99 - CARDIOVASCULAR Pulses: Normal: Dorsalis pedis - Cap refill less than 2 seconds in all lower extremity digits - MUSCULOSKELETAL/EXTREMETIES Musculoskeletal/Extremeties: MAEW, FROM, Tender - At the distal end of the left great toe, No Edema. negative: Eccymosis Notes: No evidence of nail injury. Nail intact without evidence of avulsion, felon or paronychia. No evidence of deformity, ecchymosis or edema of the great toe. Negative for metatarsal compression. Patient able to bear weight. - NEURO Level of Consciousness: Awake, Alert, Appropriate Motor/Sensory: No Motor Deficit, No Sensory Deficit - DERM Integumentary: Warm, Dry, No Rash. negative: Abscess - No evidence of paronychia, Laceration Course - Re-evaluation Re-evalutation: 12/06/16 21:44 Patient is a 20 year old female who presnts with left great toe pain. Patient states that she stubbed it 3 times and wanted to make sure that her toenail was okay. No evidence of paronychia or felon. Patient with full range of motion no evidence of deformity, ecchymosis or edema. Patient declining to wait for an x-ray at this time, given that her foot is neurovascularly intact and dispo will not change with results. Will discharge home on crutches with instructions for rest, ice, [id number] NSAIDs. Patient agrees with plan. - Vital Signs Vital signs: Temp Pulse Resp BP Pulse Ox 98.1 F 92 H 18 132/51 H 99 12/06/16 21:13 12/06/16 21:13 12/06/16 21:13 12/06/16 21:13 12/06/16 21:13 Discharge - Discharge Clinical Impression: Toe injury Qualifiers: Encounter type: initial encounter Laterality: left Qualified Code(s): S99.922A - Unspecified injury of left foot, initial encounter Condition: Good Disposition: HOME, SELF-CARE Instructions: Stubbed Toe ([facility]), Use of Crutches ([facility]), Ice & Elevation ([facility]), Use of [id number] Ibuprofen ([facility])
== END 2016-12-06 22:00 | disposition home or self-care (01) ==
LOC: ER 20:38
DX: S99.922A Unspecified injury of left foot, initial encounter (principal); M79.675 Pain in left toe(s); F17.200 Nicotine dependence, unspecified, uncomplicated; X58.XXXA Exposure to other specified factors, initial encounter
CPT/HCPCS: 99283

== ENCOUNTER 2016-12-12 00:21 | Emergency (ER) | payer OTHER, MEDICAID ==
--- NOTE | 2016-12-12 02:12 | ER Document Report ---
HPI - HPI Patient complains to provider of: Left foot pain, toe pain Pain Level: 4 Context: Patient is a 21-year-old female who comes emergency department for chief complaint of left foot pain and left great toe pain. She states that she continues to accidentally stub her toe, she was seen a few days ago for the same, she states she has had it again. She states now it is bruised and swollen and painful. She denies dropping anything on it, she states she is simply "clumsy" and kicked it on stairs and objects around the house. She denies any other complaints. - REPRODUCTIVE Reproductive: DENIES: : Past Medical History - General Information source: Patient - Social History Smoking Status: Never Smoker Frequency of alcohol use: None Drug Abuse: None Lives with: Family Family History: Reviewed & Not Pertinent, CAD, CVA, DM, Hyperlipidemia, Hypertension, Malignancy - Past Medical History Cardiac Medical History: Denies: Hx Heart Attack, Hx Hypertension Pulmonary Medical History: Denies: Hx Asthma Neurological Medical History: Reports: Hx Seizures - FEBRILE TODDLER Endocrine Medical History: Denies: Hx Diabetes Mellitus Type 2 - hypogylcemia Renal/ Medical History: Reports: Hx Ovarian Cysts. Denies: Hx Peritoneal Dialysis GI Medical History: Denies: Hx Hiatal Hernia, Hx Ulcer Musculoskeltal Medical History: Reports Hx Fibromyalgia, Reports Hx Musculoskeletal Trauma Skin Medical History: Reports Hx Cellulitis Psychiatric Medical History: Reports: Hx Attention Deficit Hyperactivity Disorder, Hx Bipolar Disorder, Hx Depression Past Surgical History: Reports: Hx Adenoidectomy, Hx Oral Surgery - T&A, wisdom teeth, Hx Tonsillectomy. Denies: Hx Hysterectomy, Hx Mastectomy, Hx Open Heart Surgery - Immunizations Immunizations up to date: Yes Hx Diphtheria, Pertussis, Tetanus Vaccination: Yes Hx Pneumococcal Vaccination: 05/09/00 Vertical Provider Document - CONSTITUTIONAL General Appearance: WD/WN, No Apparent Distress - INFECTION CONTROL TRAVEL OUTSIDE OF THE [place] IN LAST 30 DAYS: No - HEENT HEENT: Atraumatic - NECK Neck: Normal Inspection - RESPIRATORY Respiratory: Breath Sounds Normal, No Respiratory Distress - CARDIOVASCULAR Cardiovascular: Regular Rate, Regular Rhythm - GI/ABDOMEN Gastrointestinal: Abdomen Soft, Abdomen Non-Tender - BACK Back: Normal Inspection - MUSCULOSKELETAL/EXTREMETIES Musculoskeletal/Extremeties: Tender - There is mild bruising over the dorsal aspect of the left great toe. No erythema, abnormal heat, drainage, normal lower extremity exam bilaterally otherwise Course - Re-evaluation Re-evalutation: There is mild bruising over the dorsal aspect of the left great toe. No paronychia, significant swelling, normal neurovascular exam. X-ray normal. Patient given postop shoe for protection and comfort, she already has crutches. Patient told to be careful when walking, I did discuss return precautions as well. Patient states understanding and agreement. Discharge - Discharge Clinical Impression: Toe injury Qualifiers: Encounter type: initial encounter Laterality: left Qualified Code(s): S99.922A - Unspecified injury of left foot, initial encounter Condition: Stable Disposition: HOME, SELF-CARE Additional Instructions: X-ray shows no fracture, dislocation, or concerning abnormality. Examination shows soft tissue injury. Apply ice to the area 3-4 times a day for 10-15 minutes, take the prescribed medication, use the protective shoe and/or crutches for the next couple of days if needed. Follow-up with primary care. Return for any concerning symptoms including redness, worsening swelling, or any other concerning symptoms. Prescriptions: Naproxen [Naprosyn 375 Mg Tablet] 375 mg PO BID #20 tablet
--- NOTE | 2016-12-12 03:37 | RADIOLOGY REPORT (SQ) ---
EXAM DESCRIPTION: FOOT LEFT COMPLETE COMPLETED DATE/TIME: 12/12/2016 2:52 am REASON FOR STUDY: injury, pain . Fall. Pain at the 1st toe. COMPARISON: None. NUMBER OF VIEWS: Three views. TECHNIQUE: AP, lateral and oblique radiographic images acquired of the left foot. LIMITATIONS: None. FINDINGS: MINERALIZATION: Normal. BONES: No acute fracture or dislocation. SOFT TISSUES: No soft tissue swelling. No radiopaque foreign body. IMPRESSION: No radiographic evidence of acute injury. TECHNICAL DOCUMENTATION: JOB ID: [id number] [id number] 2010 [employer]- All Rights Reserved
[2016-12-12] MEDS ORDERED: NAPROXEN 250 MG TABLET PO ONE (03:41)
[2016-12-12 06:57] VITALS: BP 116/65
== END 2016-12-12 04:10 | disposition home or self-care (01) ==
LOC: ER 00:21
DX: S90.112A Contusion of left great toe without damage to nail, initial encounter (principal); W22.8XXA Striking against or struck by other objects, initial encounter
CPT/HCPCS: 99283

== ENCOUNTER 2016-12-22 19:50 | Emergency (ER) | payer OTHER, MEDICAID ==
--- NOTE | 2016-12-22 22:12 | ER Document Report ---
ED Extremity Problem, Lower - General Mode of Arrival: Wheelchair Information source: Patient TRAVEL OUTSIDE OF THE [place] IN LAST 30 DAYS: No <ROSITA REYES - Last Filed: 12/23/16 05:39> <JOSH GUNDERSON - Last Filed: 12/23/16 06:33> - General Chief Complaint: Toe Injury Stated Complaint: TOE PAIN Time Seen by Provider: 12/22/16 22:55 Notes: Patient is a 21 year old female presenting to the emergency department for an injury to her right great toe. Patient states she stubbed her toe x1 month ago. Patient states that her toe started bleeding last night while she was walking and it also was bleeding this afternoon around 1:00. Patient states bleeding was coming from underneath her toenail. Patient states that she also had her toe on 2 other objects since the initial injury. Patient received x-rays 10 days ago with no acute finding or fractures. Patient states her toe hurts with movement and states that she has been taking naproxen for her pain. Patient has been wearing open toed shoes and sandals but has not been wearing closed protective footwear. (ROSITA REYES) - Related Data Allergies/Adverse Reactions: codeine [Codeine] Allergy (Intermediate, Verified 12/12/16 00:30) rash Past Medical History - Social History Family History: Reviewed & Not Pertinent, CAD, CVA, DM, Hyperlipidemia, Hypertension, Malignancy Patient has suicidal ideation: No Patient has homicidal ideation: No - Past Medical History Cardiac Medical History: Denies: Hx Heart Attack, Hx Hypertension Pulmonary Medical History: Denies: Hx Asthma Neurological Medical History: Reports: Hx Seizures - FEBRILE TODDLER Endocrine Medical History: Comment Only: Hx Diabetes Mellitus Type 2 - hypogylcemia Renal/ Medical History: Reports: Hx Ovarian Cysts. Denies: Hx Peritoneal Dialysis GI Medical History: Denies: Hx Hiatal Hernia, Hx Ulcer Musculoskeltal Medical History: Reports Hx Fibromyalgia, Reports Hx Musculoskeletal Trauma Skin Medical History: Reports Hx Cellulitis Psychiatric Medical History: Reports: Hx Attention Deficit Hyperactivity Disorder, Hx Bipolar Disorder, Hx Depression Past Surgical History: Reports: Hx Adenoidectomy, Hx Oral Surgery - T&A, wisdom teeth, Hx Tonsillectomy. Denies: Hx Hysterectomy, Hx Mastectomy, Hx Open Heart Surgery - Immunizations Immunizations up to date: Yes Hx Diphtheria, Pertussis, Tetanus Vaccination: Yes Hx Pneumococcal Vaccination: 05/09/00 <ROSITA REYES - Last Filed: 12/23/16 05:39> - Social History Smoking Status: Unknown if Ever Smoked <JOSH GUNDERSON - Last Filed: 12/23/16 06:33> Review of Systems - Review of Systems Constitutional: No symptoms reported EENT: No symptoms reported Cardiovascular: No symptoms reported Respiratory: No symptoms reported Gastrointestinal: No symptoms reported Genitourinary: No symptoms reported Female Genitourinary: No symptoms reported Musculoskeletal: See HPI Skin: No symptoms reported Hematologic/Lymphatic: No symptoms reported Neurological/Psychological: No symptoms reported -: Yes All other systems reviewed and negative <ROSITA REYES - Last Filed: 12/23/16 05:39> Physical Exam - Vital signs Interpretation: Normal <ROSITA REYES - Last Filed: 12/23/16 05:39> <JOSH GUNDERSON - Last Filed: 12/23/16 06:33> - Vital signs Vitals: Temp Pulse Resp BP Pulse Ox 98.6 F 103 H 16 114/61 98 12/22/16 20:28 12/22/16 20:28 12/22/16 20:28 12/22/16 20:28 12/22/16 20:28 - Notes Notes: GENERAL: Alert, interacts well. No acute distress. HEAD: Normocephalic, atraumatic. EYES: Appear normal. Pupils equal, round, and reactive to light. ENT: Moist mucus membranes, tongue midline. NECK: Full range of motion. Supple. Trachea midline. LUNGS: Clear to auscultation bilaterally, no wheezes, rales, or rhonchi. No respiratory distress. HEART: Regular rate and rhythm. No murmurs, gallops, or rubs. ABDOMEN: Soft, non-tender. Non-distended. Normal bowel sounds. EXTREMITIES: Moves all 4 extremities spontaneously. Normal strength. No edema. Right great toe is tender to palpate, there is no bleeding or erythema. NEUROLOGICAL: Alert and oriented x3. Normal speech. No focal neurological deficits. GSC 15. PSYCH: Normal affect, normal mood. SKIN: Warm, dry, normal turgor. No rashes or lesions noted. (ROSITA REYES) Course <ROSITA REYES - Last Filed: 12/23/16 05:39> <JOSH GUNDERSON - Last Filed: 12/23/16 06:33> - Re-evaluation Re-evalutation: 12/23/16 Patient presents with toe pain and bleeding. It is likely that the subungual hematoma that has been there has finally released. Patient has no bleeding here. No redness. Patient does have tenderness over toenail. Patient will be started on antibiotics for a possible subacute infection. No other complaints. Stable for discharge. (JOSH GUNDERSON) - Vital Signs Vital signs: Temp Pulse Resp BP Pulse Ox 98.2 F 78 12 114/52 L 99 12/22/16 23:33 12/22/16 23:33 12/22/16 23:33 12/22/16 23:33 12/22/16 23:33 Discharge <ROSITA REYES - Last Filed: 12/23/16 05:39> <JOSH GUNDERSON - Last Filed: 12/23/16 06:33> - Discharge Clinical Impression: Toe pain, right Condition: Stable Disposition: HOME, SELF-CARE Instructions: Sprained Toe ([facility]) Additional Instructions: Please follow-up with a position classification manager. Wear closed toe shoes. Take Naproxen for pain. Prescriptions: Cephalexin Monohydrate [Keflex 500 mg Capsule] 500 mg PO Q6H 7 Days capsule Forms: Return to Work Scribe Attestation: 12/23/16 06:33 I personally performed the services described in the documentation, reviewed and edited the documentation which was dictated to the scribe in my presence, and it accurately records my words and actions. (JOSH GUNDERSON) Scribe Documentation - Scribe Written by Carolann:: Carolann Perez, 12/23/2016 3:07 acting as scribe for :: Pepe <ROSITA REYES - Last Filed: 12/23/16 05:39>
[2016-12-22] MEDS ORDERED: CEPHALEXIN 500 MG CAPSULE PO ONE (23:03)
[2016-12-22 23:34] VITALS: BP 114/52
== END 2016-12-22 23:33 | disposition home or self-care (01) ==
LOC: ER 19:50
DX: M79.674 Pain in right toe(s) (principal); W22.8XXA Striking against or struck by other objects, initial encounter; E11.9 Type 2 diabetes mellitus without complications; Z88.5 Allergy status to narcotic agent
CPT/HCPCS: 99283

== ENCOUNTER 2017-01-19 18:31 | Emergency (ER) | payer OTHER, MEDICAID ==
[2017-01-19] MEDS ORDERED: PENICILLIN V POTASSIUM 500 MG TABLET PO ONE (20:37)
[2017-01-19] MEDS ORDERED: IBUPROFEN 800 MG TABLET PO ONE (20:37)
--- NOTE | 2017-01-19 20:37 | ER Document Report ---
HPI - HPI Patient complains to provider of: sore throat and gums Pain Level: 5 Context: 21 yo female c/o sore throat x 3-4 days, left lower gum and tooth pain x 1 week Associated Symptoms: denies: Drooling, Earache, Nausea, Vomiting Exacerbated by: Denies Relieved by: Denies Similar symptoms previously: No Recently seen / treated by doctor: No - CARDIOVASCULAR Cardiovascular: DENIES: Chest pain - REPRODUCTIVE Reproductive: DENIES: : - DERM Skin Color: Normal Past Medical History - General Information source: Patient - Social History Smoking Status: Current Every Day Smoker Chew tobacco use (# tins/day): No Frequency of alcohol use: None Drug Abuse: None Lives with: Family Family History: Reviewed & Not Pertinent, CAD, CVA, DM, Hyperlipidemia, Hypertension, Malignancy - Medical History Medical History: Negative - Past Medical History Cardiac Medical History: Denies: Hx Heart Attack, Hx Hypertension Pulmonary Medical History: Denies: Hx Asthma Neurological Medical History: Reports: Hx Seizures - FEBRILE TODDLER Endocrine Medical History: Comment Only: Hx Diabetes Mellitus Type 2 - hypogylcemia Renal/ Medical History: Reports: Hx Ovarian Cysts. Denies: Hx Peritoneal Dialysis GI Medical History: Denies: Hx Hiatal Hernia, Hx Ulcer Musculoskeltal Medical History: Reports Hx Fibromyalgia, Reports Hx Musculoskeletal Trauma Skin Medical History: Reports Hx Cellulitis Psychiatric Medical History: Reports: Hx Attention Deficit Hyperactivity Disorder, Hx Bipolar Disorder, Hx Depression Past Surgical History: Reports: Hx Adenoidectomy, Hx Oral Surgery - T&A, wisdom teeth, Hx Tonsillectomy. Denies: Hx Hysterectomy, Hx Mastectomy, Hx Open Heart Surgery - Immunizations Immunizations up to date: Yes Hx Diphtheria, Pertussis, Tetanus Vaccination: Yes Hx Pneumococcal Vaccination: 05/09/00 Vertical Provider Document - CONSTITUTIONAL Agree With Documented VS: Yes Exam Limitations: No Limitations General Appearance: WD/WN, No Apparent Distress - INFECTION CONTROL TRAVEL OUTSIDE OF THE [place] IN LAST 30 DAYS: No - HEENT HEENT: Atraumatic, PERRLA, Pharyngeal Tenderness, Pharyngeal Erythema. negative : Pharyngeal Exudate Mouth Diagram: 1 - + gingival swelling. - NECK Neck: Normal Inspection, Supple. negative: Lymphadenopathy-Left, Lymphadenopathy-Right - RESPIRATORY Respiratory: Breath Sounds Normal, No Respiratory Distress O2 Sat by Pulse Oximetry: 98 - CARDIOVASCULAR Cardiovascular: Regular Rate, Regular Rhythm - MUSCULOSKELETAL/EXTREMETIES Musculoskeletal/Extremeties: MAEW, FROM, Non-Tender - NEURO Level of Consciousness: Awake, Alert, Appropriate - DERM Integumentary: Warm, Dry, No Rash Course - Re-evaluation Re-evalutation: 01/19/17 20:34 no s/s ludgwigs, peritonsillar abscess, no airway compromise. will treat for dental infection. pt stable for discharge. pt does have dentist she can follow up with - Vital Signs Vital signs: Temp Pulse Resp BP Pulse Ox 98.4 F 97 14 118/76 98 01/19/17 18:36 01/19/17 18:36 01/19/17 18:36 01/19/17 18:36 01/19/17 18:36 Discharge - Discharge Clinical Impression: Pain, dental, Sore throat Condition: Stable Disposition: HOME, SELF-CARE Instructions: Penicillin V K ([facility]), Sore Throat ([facility]), Toothache ([facility]) Additional Instructions: Please take all antibiotic as prescribed Lozenges, salt water gargles for comfort recommend new tooth brush in 2 days follow up with dental for further evaluation and treatment Prescriptions: Ibuprofen [Motrin 800 Mg Tablet] 800 mg PO Q6H #20 tablet Penicillin V Potassium [Penicillin Vk 500 mg Tablet] 500 mg PO BID #20 tablet
[2017-01-19 21:07] VITALS: BP 70/57
== END 2017-01-19 21:07 | disposition home or self-care (01) ==
LOC: ER 18:31
DX: K08.89 Other specified disorders of teeth and supporting structures (principal); J02.9 Acute pharyngitis, unspecified; R68.84 Jaw pain; F17.200 Nicotine dependence, unspecified, uncomplicated
CPT/HCPCS: 99283

== ENCOUNTER 2017-04-13 14:43 | Emergency (ER) | payer MEDICAID, OTHER ==
[2017-04-13 14:51] VITALS: BP 109/49
[2017-04-13] MEDS ORDERED: LIDOCAINE 1% INJ (10 MG/ML) 10 ML MDV INJ ONE (15:32)
--- NOTE | 2017-04-13 15:36 | ER Document Report ---
ED General - General Chief Complaint: Toe Injury Stated Complaint: LEFT BIG TOE PAIN Time Seen by Provider: 04/13/17 15:28 Notes: 5-year-old female presents with left great toe pain redness and pus for 3 days. Initial injury was a month ago. Pain is worsening after she got her toe stepped on yesterday. History of ingrown toenails TRAVEL OUTSIDE OF THE [place] IN LAST 30 DAYS: No - Related Data Allergies/Adverse Reactions: codeine [Codeine] Allergy (Intermediate, Verified 01/19/17 18:36) rash Past Medical History - Social History Smoking Status: Never Smoker Family History: Reviewed & Not Pertinent, CAD, CVA, DM, Hyperlipidemia, Hypertension, Malignancy - Past Medical History Cardiac Medical History: Denies: Hx Heart Attack, Hx Hypertension Pulmonary Medical History: Denies: Hx Asthma Neurological Medical History: Reports: Hx Seizures - FEBRILE TODDLER Endocrine Medical History: Comment Only: Hx Diabetes Mellitus Type 2 - hypogylcemia Renal/ Medical History: Reports: Hx Ovarian Cysts. Denies: Hx Peritoneal Dialysis GI Medical History: Denies: Hx Hiatal Hernia, Hx Ulcer Musculoskeltal Medical History: Reports Hx Fibromyalgia, Reports Hx Musculoskeletal Trauma Skin Medical History: Reports Hx Cellulitis Psychiatric Medical History: Reports: Hx Attention Deficit Hyperactivity Disorder, Hx Bipolar Disorder, Hx Depression Past Surgical History: Reports: Hx Adenoidectomy, Hx Oral Surgery - T&A, wisdom teeth, Hx Tonsillectomy. Denies: Hx Hysterectomy, Hx Mastectomy, Hx Open Heart Surgery - Immunizations Immunizations up to date: Yes Hx Diphtheria, Pertussis, Tetanus Vaccination: Yes Hx Pneumococcal Vaccination: 05/09/00 Review of Systems - Review of Systems Notes: REVIEW OF SYSTEMS GEN: Denies fever, chills, weight loss ENT: Denies sore throat, nasal discharge, ear pain EYES: Denies blurry vision, eye pain, discharge CV: Denies chest pain, palpitations, edema RESP: Denies cough, shortness of breath, wheezing GI: Denies abdominal pain, nausea, vomiting, diarrhea MSK: Pain and redness SKIN: Denies rash, skin lesions LYMPH: Denies swollen glands/lymph nodes NEURO: Denies headache, focal weakness or numbness, dizziness PSYCH: Denies depression, suicidal or homicidal ideation PHYSICAL EXAMINATION General: No acute distress, well-nourished Head: Atraumatic, normocephalic ENT: Mouth normal, oropharynx moist, no exudates or tonsillar enlargement Eyes: Conjunctiva normal, pupils equal, lids normal Neck: No JVD, supple, no guarding CVS: Normal rate, regular rhythm, no murmurs Resp: No resp distress, equal and normal breath sounds bilaterally GI: Nondistended, soft, no tenderness to palpation, no rebound or guarding Ext: Left-sided ingrown toenail great toe with pus pockets on bilateral sides with minimal toe swelling and redness. Back: No CVA or midline TTP Skin: No rash, warm Lymphatic: No lymphadeopathy noted Neuro: Awake, alert. Face symmetric. GCS 15. Physical Exam - Vital signs Vitals: Temp Pulse Resp BP Pulse Ox 98.5 F 90 18 109/49 L 97 04/13/17 14:49 04/13/17 14:49 04/13/17 14:49 04/13/17 14:49 04/13/17 14:49 Course - Re-evaluation Re-evalutation: 04/13/17 15:33 Left-sided ingrown toenail, bilateral with signs of pus. Will anesthetize and remove lateral edges of nails. See procedure note. No antibiotics indicated. Warm soaks and compression dressing. Follow-up primary care. I have discussed with the patient there likely diagnosis, aftercare plan, follow -up plans and my usual and customary return precautions. They verbalized understanding of this. 04/13/17 15:34 Seizure note: Ingrown toenail removal Consent: Verbal Indication: Bilateral onychocryptosis with infection Procedure in detail: Betadine prep allowed to dry. Draped sterilely. Sterile gloves used. Lidocaine digital block to left great toe with 5 total cc of 1% lidocaine without epinephrine. Longitudinal incisions made with scissors on the lateral edges of toenail bilaterally. Toenail was cut down under the cuticle and removed via axial traction. Bleeding was controlled with direct pressure. Less than 1 cc of total pus obtained. Wrapped with pressure dressing and dressed sterilely. Postop shoe placed. Complications: None - Vital Signs Vital signs: Temp Pulse Resp BP Pulse Ox 98.5 F 90 18 109/49 L 97 04/13/17 14:49 04/13/17 14:49 04/13/17 14:49 04/13/17 14:49 04/13/17 14:49 Discharge - Discharge Clinical Impression: Ingrown toenail of left foot with infection Condition: Good Disposition: HOME, SELF-CARE Instructions: Ingrown Nail ([facility])
[2017-04-13] MEDS ORDERED: LIDOCAINE 1% INJ-PF (10 MG/ML) 30 ML SDV ONE (15:45)
== END 2017-04-13 16:23 | disposition home or self-care (01) ==
LOC: ER 14:43
PROC: 0HBRXZZ Excision of Toe Nail, External Approach (ICD-10-PCS; principal; 2017-04-13)
DX: L60.0 Ingrowing nail (principal); Z88.6 Allergy status to analgesic agent
CPT/HCPCS: 99283

== ENCOUNTER 2017-04-16 13:50 | Emergency (ER) | payer MEDICAID ==
[2017-04-16] MEDS ORDERED: CEPHALEXIN 500 MG CAPSULE PO ONE (15:16)
[2017-04-16] MEDS ORDERED: ONDANSETRON 4 MG TAB.RAPDIS PO ONE (15:16)
--- NOTE | 2017-04-16 15:19 | ER Document Report ---
ED Extremity Problem, Lower - General Chief Complaint: Toe Injury Stated Complaint: LEFT TOE PAIN Time Seen by Provider: 04/16/17 14:34 Mode of Arrival: Ambulatory Information source: Patient Notes: 21-year-old female presents to ED for complaint of ingrown turned to the left foot with infection. She states she had some nausea and vomiting yesterday no fever since she was seen yesterday. She states there was some redness and pus for 3 days in the provider cut part of the toenail off and the pain is still continued. TRAVEL OUTSIDE OF THE [place] IN LAST 30 DAYS: No - HPI Patient complains to provider of: Pain, Swelling. No: Injury Location: Great Toe - left Occurred: Other - 04/12/17 Where: Home Onset/Duration: Gradual Quality of pain: Sharp Severity: Severe Pain Level: 5 Context: Other - Pain to left great toe Recent injury: No Associated symptoms: Painful ambulation Exacerbated by: Movement, Walking Relieved by: Nothing - Related Data Allergies/Adverse Reactions: codeine [Codeine] Allergy (Intermediate, Verified 01/19/17 18:36) rash Past Medical History - General Information source: Patient - Social History Smoking Status: Current Every Day Smoker Cigarette use (# per day): Yes - One half pack per day Chew tobacco use (# tins/day): No Smoking Education Provided: Yes - Less than 2 minutes Frequency of alcohol use: Occasional Drug Abuse: None Occupation: None Lives with: Spouse/Significant other Family History: Arthritis, CVA, DM, Hyperlipidemia, Hypertension, Malignancy. denies: CAD, COPD Patient has suicidal ideation: No Patient has homicidal ideation: No - Past Medical History Cardiac Medical History: Reports: None Pulmonary Medical History: Reports: None EENT Medical History: Reports: None Neurological Medical History: Reports: Hx Seizures - FEBRILE TODDLER Endocrine Medical History: Comment Only: Hx Diabetes Mellitus Type 2 - hypogylcemia Renal/ Medical History: Reports: Hx Ovarian Cysts Malignancy Medical History: Reports: None GI Medical History: Reports: None Musculoskeltal Medical History: Reports Hx Fibromyalgia, Reports Hx Musculoskeletal Trauma Skin Medical History: Reports Hx Cellulitis Psychiatric Medical History: Reports: Hx Attention Deficit Hyperactivity Disorder, Hx Bipolar Disorder, Hx Depression Traumatic Medical History: Reports: None Infectious Medical History: Reports: None Past Surgical History: Reports: Hx Adenoidectomy, Hx Oral Surgery - T&A, wisdom teeth, Hx Tonsillectomy - Immunizations Immunizations up to date: Yes Hx Diphtheria, Pertussis, Tetanus Vaccination: Yes Hx Pneumococcal Vaccination: 05/09/00 Review of Systems - Review of Systems Constitutional: No symptoms reported EENT: No symptoms reported Cardiovascular: No symptoms reported Respiratory: No symptoms reported Gastrointestinal: No symptoms reported Genitourinary: No symptoms reported Female Genitourinary: No symptoms reported Musculoskeletal: Other - Pain to the left great toe, minimal redness, no swelling, and no drainage at this time Skin: Other - Minimal redness around the left great toenail no swelling no drainage Hematologic/Lymphatic: No symptoms reported Neurological/Psychological: No symptoms reported -: Yes All other systems reviewed and negative Physical Exam - Vital signs Interpretation: Normal - General General appearance: Appears well, Alert - HEENT Head: Normocephalic, Atraumatic Eyes: Normal Pupils: PERRL - Respiratory Respiratory status: No respiratory distress Chest status: Nontender Breath sounds: Normal Chest palpation: Normal - Cardiovascular Rhythm: Regular Heart sounds: Normal auscultation Murmur: No - Abdominal Inspection: Normal Distension: No distension Bowel sounds: Normal Tenderness: Nontender Organomegaly: No organomegaly - Back Back: Normal, Nontender - Extremities General upper extremity: Normal inspection, Nontender, Normal color, Normal ROM , Normal temperature General lower extremity: Normal ROM, Normal temperature, Normal weight bearing. No: Nicholas's sign Ankle: Tender, Other - Left great toe minimal redness and no swelling to the left great toe. No: Abrasion, Deformity, Ecchymosis, Edema, Instability, Laceration, Limited ROM, Positive Sandra's test - Neurological Neuro grossly intact: Yes Cognition: Normal Orientation: AAOx4 Flaco Coma Scale Eye Opening: Spontaneous Flaco Coma Scale Verbal: Oriented Flaco Coma Scale Motor: Obeys Commands Allen Coma Scale Total: 15 Speech: Normal Motor strength normal: LUE, RUE, LLE, RLE Sensory: Normal - Psychological Associated symptoms: Normal affect, Normal mood - Skin Skin Temperature: Warm Skin Moisture: Dry Skin Color: Normal Location of irregularity: Extremities - Left great toe around the nail Character of irregularity: Erythematous - Minimal Irregularity with: Tenderness. negative: Swelling, Warmth Discharge - Discharge Clinical Impression: Ingrown toenail of left foot with infection Condition: Stable Disposition: HOME, SELF-CARE Additional Instructions: Ingrown Nail You have an ingrown nail. An ingrown nail develops when the tissues near the nail are pushed up over the nail. Irritation develops and infection follows. An ingrown nail can result from poorly fitting shoes, improper cutting of the nail, or minor injuries. Once the tissues at the edge of the nail swell, the problem can become chronic. Emergency treatment is usually removal of the portion of the nail that has become ingrown. This is followed by hot soaks three to four times a day. Antibiotics may be necessary if infection is present. After the toe heals, make certain there is no pressure on the area, either from shoes or another toe. Trim the toenails straight across, not curved back into the corners. If ingrown nails recur, an operation to remove excess tissue near the nail, or narrowing of the nail, may be necessary. Call the doctor or return if swelling increases, or red streaks, swelling, or swollen glands are found. Cephalexin The antibiotic you've been prescribed is a member of the cephalosporin class. This type of antibiotic covers a wide variety of infections, including those of the skin, lungs, and urinary tract. It's useful for staph infections. This antibiotic is slightly similar to the penicillin family. In rare cases , a person who is allergic to penicillin will also be allergic to this medication. If you have had a severe allergic reaction to penicillin, and have not taken this antibiotic since that time, notify your doctor. Antibiotics which cover many germs ("broad spectrum" antibiotics) are more likely to cause diarrhea or "yeast" infections. Women prone to vaginal yeast problems may suffer an attack after taking this antibiotic. In infants, oral thrush (white spots "stuck" on the cheek) or yeast diaper rash may result. See your doctor if these problems occur. Call at once if you develop itching, hives , shortness of breath, or lightheadedness. Antinausea Medication You have been given a medication to suppress nausea and vomiting. This type of medication can be given as a shot, pill, or suppository. It will usually last for many hours. Pills and shots usually last six to eight hours, suppositories last about 12 hours. For the typical illness, only one or two doses of the medication may be necessary. Mild lightheadedness may occur. This type of medicine can cause drowsiness. Do not drive or operate dangerous machinery while under its influence. Do not mix with alcohol. See your doctor at once if you have muscle spasms or tightness, or uncontrollable motions (particularly of the neck, mouth, or jaw). Persistent vomiting or severe lightheadedness should also be evaluated by the physician. Epsom Salt Soaks Soak the wound area in a container of warm epsom salt water. If you can't get the wound area into a bucket or persaud, use a folded towel soaked in the epsom salt solution and apply to the area. Use clean hot tap water (about the temperature of a very warm bath), mixing in about one (1) teaspoon for every pint of water. Two gallon --> 16 teaspoons Epsom Salts One gallon --> 8 teaspoons Epsom Salts Two quarts --> 4 teaspoons Epsom Salts One quart --> 2 teaspoons Epsom Salts Soak the wound for about 20 minutes while gently moving it around in the water. Repeat this four (4) times a day. FOLLOW-UP CARE: If you have been referred to a physician for follow-up care, call the physician s office for an appointment as you were instructed or within the next two days. If you experience worsening or a significant change in your symptoms, notify the physician immediately or return to the Emergency Department at any time for re-evaluation. Please call podiatry on Tuesday and schedule a follow-up appointment Prescriptions: Cephalexin Monohydrate [Keflex 500 mg Capsule] 500 mg PO Q6H 5 Days capsule Referrals: PETER ELLIOTT DPM [ACTIVE STAFF] - Follow up as needed
== END 2017-04-16 15:30 | disposition home or self-care (01) ==
LOC: ER 13:50
DX: L60.0 Ingrowing nail (principal); E11.9 Type 2 diabetes mellitus without complications; F17.210 Nicotine dependence, cigarettes, uncomplicated; Z71.6 Tobacco abuse counseling; Z88.5 Allergy status to narcotic agent
CPT/HCPCS: 99283; S0119

== ENCOUNTER 2017-06-26 20:59 | Emergency (ER) | payer MEDICAID ==
[2017-06-27] MEDS ORDERED: IBUPROFEN 800 MG TABLET PO ONE (00:12)
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
[2017-06-27 00:45] VITALS: BP 122/68
== END 2017-06-27 00:43 | disposition home or self-care (01) ==
LOC: ER 20:59
DX: S50.12XA Contusion of left forearm, initial encounter (principal); X58.XXXA Exposure to other specified factors, initial encounter; F17.200 Nicotine dependence, unspecified, uncomplicated
CPT/HCPCS: 99283; J3490